=== PATIENT | male | born 1995 | race Caucasian/White ===

== ENCOUNTER 2017-11-09 17:03 | Emergency (ER) | payer OTHER ==
[2017-11-09] MEDS ORDERED: IBUPROFEN 600 MG TAB PO STA (17:29)
[2017-11-09] MEDS ORDERED: ACETAMINOPHEN TAB 500 MG TAB PO STA (17:29)
--- NOTE | 2017-11-09 17:33 | ED ---
General Adult HPI - General Chief complaint: Arrhythmia/Palpitations Stated complaint: abn ekg Time Seen by Provider: 11/09/17 17:20 Source: patient, family, RN notes reviewed Mode of arrival: ambulatory Limitations: no limitations - History of Present Illness Initial comments: This is a 21-year-old male who presents to the emergency department with chief complaint of shortness of breath and increased heart rate. Patient states that this morning he woke up and was feeling warm. He states that he felt short of breath and had a cough. He states the symptoms came on suddenly. He also reports body aches. He states that he has been exposed to a friend who is sick. Denies any recent surgeries or hospitalizations. He does not take any medications for anything. Patient presented to [email or web address] prior to arrival to the emergency department and was told to come here for an elevated heart rate. They did obtain an EKG which revealed sinus tachycardia with no ST segment changes. He had a slightly elevated temperature at 99.1. On presentation to the emergency department, patient was found to have tachycardia and a fever 101.7. Patient denies any abdominal pain, nausea or vomiting, diarrhea or constipation, dysuria or hematuria, dizziness or headache. - Related Data Previous Rx's Medication Instructions Recorded Levofloxacin [Levaquin] 500 mg PO DAILY #7 tab 11/09/17 Allergies Allergy/AdvReac Type Severity Reaction Status Date / Time No Known Allergies Allergy Verified 11/09/17 17:56 Review of Systems ROS Statement: Those systems with pertinent positive or pertinent negative responses have been documented in the HPI. ROS Other: All systems not noted in ROS Statement are negative. Past Medical History Past Medical History: No Reported History History of Any Multi-Drug Resistant Organisms: None Reported Past Surgical History: No Surgical Hx Reported Past Psychological History: No Psychological Hx Reported Smoking Status: Never smoker Past Alcohol Use History: Rare Past Drug Use History: None Reported General Exam - General Exam Comments Initial Comments: General: Awake and alert, well-developed; in no apparent distress. Mother is at bedside. Febrile. HEENT: Head atraumatic, normocephalic. Pupils are equal, round and reactive to light. Extraocular movements intact. Oropharynx moist without erythema or exudate. Neck: Supple. Normal ROM. No tender lymphadenopathy. Cardiovascular: Tachycardia. Normal rhythm. No murmurs, rubs or gallops. Chest symmetrical. Respiratory: Lungs clear to auscultation bilaterally. No wheezes, rales or rhonchi. Normal respiratory effort with no use of accessory muscles. Abdomen: Soft, non-tender, non-distended. No rigidity, rebound or guarding. Normal bowel sounds in all 4 quadrants. Musculoskeletal: Normal ROM, no tenderness bilateral upper and lower extremities. Ambulating normally. Skin: [place], warm and dry without rashes or lesions. Neurological: Alert and oriented x3. CN II-XII grossly intact. Speech is fluent and answers are appropriate. No focal neuro deficits. Psychiatric: Normal mood and affect. No overt signs of depression or anxiety noted. Limitations: no limitations (Initial vital signs: Temperature 101.7, pulse 128, respirations 20, blood pressure 142/75, pulse ox 100% on room air) Course Vital Signs 11/09/17 11/09/17 11/09/17 17:17 17:30 18:44 Temperature 101.7 F H Pulse Rate 128 H 113 H Pulse Rate [ 120 H Bilateral Scenic Designer ] Respiratory 20 18 Rate Blood Pressure 142/75 O2 Sat by Pulse 100 98 Oximetry 11/09/17 19:47 Temperature 100.8 F H Pulse Rate 105 H Pulse Rate [ Bilateral Scenic Designer ] Respiratory 20 Rate Blood Pressure 101/55 O2 Sat by Pulse 97 Oximetry - Reevaluation(s) Reevaluation #1: On reevaluation patient, he complains of body aches and having a hot flash. Chest x-ray revealed no acute abnormalities. Influenza was negative. Pending labs and UA. 11/09/17 19:08 EKG Findings - EKG Comments: EKG Findings:: EKG at 17:38:30 revealed a sinus tachycardia with nonspecific ST and T-wave abnormalities. Ventricular rate 122 bpm, KS interval 176, QRS duration 86, QT/QTC 280/399. No evidence of ST segment elevation or depression. Medical Decision Making - Medical Decision Making This is a 21-year-old male who presented to the emergency department with chief complaint of elevated heart rate. Patient was found to have a fever at 101.7. He was given Motrin and Tylenol. Patient also complained of some shortness of breath and body aches. Influenza, EBV and rapid strep were all negative. Chest x-ray revealed no acute abnormalities. EKG revealed sinus tachycardia with normal rhythm. CMP and UA were within normal limits. Patient did have a slightly elevated white blood cell count with left shift. Denies any chest pain , abdominal pain, nausea or vomiting, diarrhea or constipation, sore throat, runny nose, sinus congestion, dysuria or hematuria. Patient does have a fever of unknown origin. He was given 500 mg of Levaquin while in the emergency department. Urine and blood cultures are pending. Patient's vitals are stable and he is in no acute distress. He'll be discharged home with a prescription for Levaquin. Patient was instructed to discontinue Levaquin if blood cultures are negative. But he is to take the medication until results are in. Patient is to follow-up with his primary care provider in the next couple of days. He is in agreement and voices understanding. All questions were answered. - Lab Data Result diagrams: 11/09/17 19:44 11/09/17 19:44 Lab Results 11/09/17 11/09/17 11/09/17 Range/Units 17:44 19:44 19:44 WBC 11.6 H (4.0-11.0) k/uL RBC 5.51 (4.30-5.90) m/uL Hgb 15.3 (13.0-17.5) gm/dL Hct 45.8 (39.0-53.0) % MCV 83.1 (80.0-100.0) fL MCH 27.8 (25.0-35.0) pg MCHC 33.4 (31.0-37.0) g/dL RDW 13.1 (11.5-15.5) % Plt Count 154 (150-450) k/uL Neutrophils % 89 % Lymphocytes % 5 % Monocytes % 5 % Eosinophils % 0 % Basophils % 0 % Neutrophils # 10.4 H (1.3-7.7) k/uL Lymphocytes # 0.6 L (1.0-4.8) k/uL Monocytes # 0.5 (0-1.0) k/uL Eosinophils # 0.0 (0-0.7) k/uL Basophils # 0.0 (0-0.2) k/uL Sodium 141 (137-145) mmol/L Potassium 4.2 (3.5-5.1) mmol/L Chloride 101 (98-107) mmol/L Carbon Dioxide 27 (22-30) mmol/L Anion Gap 13 mmol/L BUN 13 (9-20) mg/dL Creatinine 0.80 (0.66-1.25) mg/dL Est GFR (MDRD) Af Amer >60 (>60 ml/min/1.73 sqM) Est GFR (MDRD) Non-Af >60 (>60 ml/min/1.73 sqM) Glucose 97 (74-99) mg/dL Plasma Lactic Acid Josiah (0.7-2.0) mmol/L Calcium 10.5 H (8.4-10.2) mg/dL Total Bilirubin 1.2 (0.2-1.3) mg/dL AST 33 (17-59) U/L ALT 43 (21-72) U/L Alkaline Phosphatase 71 (38-126) U/L Total Protein 8.4 H (6.3-8.2) g/dL Albumin 5.0 (3.5-5.0) g/dL Urine Color Urine Appearance (Clear) Urine pH (5.0-8.0) Ur Specific [place] (1.001-1.035) Urine Protein (Negative) Urine Glucose (UA) (Negative) Urine Ketones (Negative) Urine Blood (Negative) Urine Nitrite (Negative) Urine Bilirubin (Negative) Urine Urobilinogen (<2.0) mg/dL Ur Leukocyte Esterase (Negative) Heterophile Antibody (Negative) Influenza Type A RNA Not Detected (Not Detectd) Influenza Type B (PCR) Not Detected (Not Detectd) Group A Strep Rapid (Negative) 11/09/17 11/09/17 11/09/17 Range/Units 19:44 19:44 19:44 WBC (4.0-11.0) k/uL RBC (4.30-5.90) m/uL Hgb (13.0-17.5) gm/dL Hct (39.0-53.0) % MCV (80.0-100.0) fL MCH (25.0-35.0) pg MCHC (31.0-37.0) g/dL RDW (11.5-15.5) % Plt Count (150-450) k/uL Neutrophils % % Lymphocytes % % Monocytes % % Eosinophils % % Basophils % % Neutrophils # (1.3-7.7) k/uL Lymphocytes # (1.0-4.8) k/uL Monocytes # (0-1.0) k/uL Eosinophils # (0-0.7) k/uL Basophils # (0-0.2) k/uL Sodium (137-145) mmol/L Potassium (3.5-5.1) mmol/L Chloride (98-107) mmol/L Carbon Dioxide (22-30) mmol/L Anion Gap mmol/L BUN (9-20) mg/dL Creatinine (0.66-1.25) mg/dL Est GFR (MDRD) Af Amer (>60 ml/min/1.73 sqM) Est GFR (MDRD) Non-Af (>60 ml/min/1.73 sqM) Glucose (74-99) mg/dL Plasma Lactic Acid Josiah 1.2 (0.7-2.0) mmol/L Calcium (8.4-10.2) mg/dL Total Bilirubin (0.2-1.3) mg/dL AST (17-59) U/L ALT (21-72) U/L Alkaline Phosphatase (38-126) U/L Total Protein (6.3-8.2) g/dL Albumin (3.5-5.0) g/dL Urine Color Urine Appearance (Clear) Urine pH (5.0-8.0) Ur Specific [place] (1.001-1.035) Urine Protein (Negative) Urine Glucose (UA) (Negative) Urine Ketones (Negative) Urine Blood (Negative) Urine Nitrite (Negative) Urine Bilirubin (Negative) Urine Urobilinogen (<2.0) mg/dL Ur Leukocyte Esterase (Negative) Heterophile Antibody Negative (Negative) Influenza Type A RNA (Not Detectd) Influenza Type B (PCR) (Not Detectd) Group A Strep Rapid Negative (Negative) 11/09/17 Range/Units 19:52 WBC (4.0-11.0) k/uL RBC (4.30-5.90) m/uL Hgb (13.0-17.5) gm/dL Hct (39.0-53.0) % MCV (80.0-100.0) fL MCH (25.0-35.0) pg MCHC (31.0-37.0) g/dL RDW (11.5-15.5) % Plt Count (150-450) k/uL Neutrophils % % Lymphocytes % % Monocytes % % Eosinophils % % Basophils % % Neutrophils # (1.3-7.7) k/uL Lymphocytes # (1.0-4.8) k/uL Monocytes # (0-1.0) k/uL Eosinophils # (0-0.7) k/uL Basophils # (0-0.2) k/uL Sodium (137-145) mmol/L Potassium (3.5-5.1) mmol/L Chloride (98-107) mmol/L Carbon Dioxide (22-30) mmol/L Anion Gap mmol/L BUN (9-20) mg/dL Creatinine (0.66-1.25) mg/dL Est GFR (MDRD) Af Amer (>60 ml/min/1.73 sqM) Est GFR (MDRD) Non-Af (>60 ml/min/1.73 sqM) Glucose (74-99) mg/dL Plasma Lactic Acid Josiah (0.7-2.0) mmol/L Calcium (8.4-10.2) mg/dL Total Bilirubin (0.2-1.3) mg/dL AST (17-59) U/L ALT (21-72) U/L Alkaline Phosphatase (38-126) U/L Total Protein (6.3-8.2) g/dL Albumin (3.5-5.0) g/dL Urine Color Light Yellow Urine Appearance Clear (Clear) Urine pH 6.0 (5.0-8.0) Ur Specific [place] 1.010 (1.001-1.035) Urine Protein Negative (Negative) Urine Glucose (UA) Negative (Negative) Urine Ketones Negative (Negative) Urine Blood Negative (Negative) Urine Nitrite Negative (Negative) Urine Bilirubin Negative (Negative) Urine Urobilinogen <2.0 (<2.0) mg/dL Ur Leukocyte Esterase Negative (Negative) Heterophile Antibody (Negative) Influenza Type A RNA (Not Detectd) Influenza Type B (PCR) (Not Detectd) Group A Strep Rapid (Negative) - Radiology Data Radiology results: report reviewed Chest x-ray findings: Heart and mediastinum are normal. Lungs are clear. Diaphragm is normal. Bony thorax appears normal. Impression: Normal chest. Disposition Clinical Impression: Fever of unknown origin Disposition: HOME SELF-CARE Condition: Good Instructions: Fever in Adults (ED) Additional Instructions: Please take medications as prescribed. May discontinue antibiotics if blood and urine cultures are negative. Please follow up with primary care provider within 1-2 days. Return to emergency department if symptoms should worsen or any concerns arise. Prescriptions: Levofloxacin [Levaquin] 500 mg PO DAILY #7 tab Referrals: None,Stated [Primary Care Provider] - 1-2 days Time of Disposition: 21:13
[2017-11-09] MEDS ORDERED: SODIUM CHLORIDE 0.9% 2,000 ML IV STA (18:26)
--- NOTE | 2017-11-09 18:58 | XR ---
EXAMINATION TYPE: XR chest 2V DATE OF EXAM: 11/09/2017 COMPARISON: NONE HISTORY: Short of breath TECHNIQUE: Frontal and lateral views of the chest are obtained. FINDINGS: Heart and mediastinum are normal. Lungs are clear. Diaphragm is normal. Bony thorax appear s normal. IMPRESSION: Normal chest
[2017-11-09 19:49] VITALS: RESP 20
[2017-11-09 20:14] LABS: ALT 43 U/L (21-72); AST 33 U/L (17-59); Alkaline Phosphatase 71 U/L (38-126); Anion Gap 13 mmol/L; Blood Urea Nitrogen 13 mg/dL (9-20); Calcium 10.5 mg/dL (8.4-10.2); Carbon Dioxide 27 mmol/L (22-30); Chloride 101 mmol/L (98-107); Glucose 97 mg/dL (74-99); Potassium 4.2 mmol/L (3.5-5.1); Sodium 141 mmol/L (137-145); Total Bilirubin 1.2 mg/dL (0.2-1.3); Total Protein 8.4 g/dL (6.3-8.2)
[2017-11-09 20:17] LABS: Basophils % (A) 0 %; Eosinophils % (A) 0 %; HCT 45.8 % (39.0-53.0); HGB 15.3 gm/dL (13.0-17.5); Lymphocytes # (A) 0.6 k/uL (1.0-4.8); Lymphocytes % (A) 5 %; MCH 27.8 pg (25.0-35.0); MCHC 33.4 g/dL (31.0-37.0); MCV 83.1 fL (80.0-100.0); Monocytes # (A) 0.5 k/uL (0-1.0); Monocytes % (A) 5 %; Neutrophils # (A) 10.4 k/uL (1.3-7.7); Neutrophils % (A) 89 %; Platelet Count 154 k/uL (150-450); RBC 5.51 m/uL (4.30-5.90); RDW 13.1 % (11.5-15.5); WBC 11.6 k/uL (4.0-11.0)
[2017-11-09 20:39] LABS: Appearance,Urine Clear (Clear); Bilirubin,Urine Negative (Negative); Blood,Urine Negative (Negative); Color,Urine Light Yellow; Glucose,Urine (UA) Negative (Negative); Ketones,Urine Negative (Negative); Leukocyte Esterase,Urine Negative (Negative); Protein,Urine Negative (Negative); Urobilinogen,Urine <2.0 mg/dL (<2.0)
[2017-11-09] MEDS ORDERED: LEVOFLOXACIN 500 MG TAB PO STA (21:08)
[2017-11-09 21:37] VITALS: BP 130/70; PULSE 106; TEMP 98.2
== END 2017-11-09 21:30 | disposition home or self-care (01) ==
LOC: EC 17:03
DX: R50.9 Fever, unspecified (principal); R00.0 Tachycardia, unspecified; D72.829 Elevated white blood cell count, unspecified; R06.02 Shortness of breath; R52 Pain, unspecified
CPT/HCPCS: 36415; 71046; 80053; 81003; 83605; 85025; 86308; 87040; 87081; 87086; 87430; 87502; 93005; 99285

== ENCOUNTER 2020-06-07 10:03 | Emergency (ER) | payer OTHER ==
[2020-06-07] MEDS ORDERED: DEXAMETHASONE SOD PHOSPHATE 10 MG/ML 1 ML VIAL IM STA (10:23)
--- NOTE | 2020-06-07 11:08 | ED ---
General Adult HPI - General Chief complaint: ENT Stated complaint: THROAT SWELLING Time Seen by Provider: 06/07/20 10:11 Source: patient, RN notes reviewed, old records reviewed Mode of arrival: ambulatory - History of Present Illness Initial comments: 24-year-old male, otherwise healthy presenting with 2 weeks of sore throat, mild cough. He denies difficulty breathing. He denies rhinorrhea. He has had bilateral sore throat and swollen lymph nodes which are worsened over the past several days. He denies abdominal pain nausea vomiting or diarrhea. No fever. He has had some chills. - Related Data Previous Rx's Medication Instructions Recorded Levofloxacin [Levaquin] 500 mg PO DAILY #7 tab 11/09/17 Allergies Allergy/AdvReac Type Severity Reaction Status Date / Time No Known Allergies Allergy Verified 06/07/20 10:05 Review of Systems ROS Statement: Those systems with pertinent positive or pertinent negative responses have been documented in the HPI. ROS Other: All systems not noted in ROS Statement are negative. Past Medical History Past Medical History: No Reported History History of Any Multi-Drug Resistant Organisms: None Reported Past Surgical History: No Surgical Hx Reported Past Psychological History: No Psychological Hx Reported Smoking Status: Never smoker Past Alcohol Use History: Rare Past Drug Use History: None Reported General Exam General appearance: alert, in no apparent distress Head exam: Present: atraumatic, normocephalic Eye exam: Present: normal appearance, PERRL ENT exam: Present: other (Significant tonsillar hypertrophy and exudate) Neck exam: Present: lymphadenopathy Respiratory exam: Present: normal lung sounds bilaterally. Absent: respiratory distress, wheezes, stridor Cardiovascular Exam: Present: regular rate, normal rhythm GI/Abdominal exam: Present: soft. Absent: distended, tenderness, guarding, rebound Extremities exam: Present: normal inspection, normal capillary refill. Absent: pedal edema, calf tenderness Neurological exam: Present: alert, oriented X3, CN II-XII intact. Absent: motor sensory deficit Psychiatric exam: Present: normal affect, normal mood Skin exam: Present: warm, dry, intact. Absent: cyanosis, diaphoretic Course Vital Signs 06/07/20 10:06 Temperature 98.1 F Pulse Rate 94 Respiratory 16 Rate Blood Pressure 176/68 O2 Sat by Pulse 100 Oximetry Medical Decision Making - Medical Decision Making 24-year-old male with tonsillar hypertrophy, exudate, ongoing for 2 weeks. Exam is concerning for mono for strep pharyngitis. Heterophile is obtained which is positive, rapid strep test is negative. Patient has no abdominal pain, no organomegaly on exam. He is given precautions for mononucleosis. He is given Decadron in the emergency department. There is no airway compromise, no stridor. - Lab Data Lab Results 06/07/20 06/07/20 Range/Units 10:41 10:41 Heterophile Antibody Positive (Negative) Group A Strep Rapid Negative (Negative) Disposition Clinical Impression: Sore throat, Mononucleosis Disposition: HOME SELF-CARE Condition: Good Instructions (If sedation given, give patient instructions): Mononucleosis (ED) Is patient prescribed a controlled substance at d/c from ED?: No Referrals: Naomi Carmen MD [Primary Care Provider] - 1-2 days Time of Disposition: 11:08
[2020-06-07 11:09] VITALS: BP 143/87; PULSE 95; RESP 18; TEMP 98.6
== END 2020-06-07 11:18 | disposition home or self-care (01) ==
LOC: EC 10:03
DX: B27.90 Infectious mononucleosis, unspecified without complication (principal)
CPT/HCPCS: 36415; 86308; 87081; 87430; 99284; 96372; J1100

== ENCOUNTER 2020-06-09 12:56 | Observation (INO) | payer OTHER ==
[2020-06-09] MEDS ORDERED: methylPREDNISolone SOD SUCCI 125 MG/2 ML VIAL IV STA (13:09)
--- NOTE | 2020-06-09 13:16 | ED ---
General Adult HPI - General Chief complaint: ENT Stated complaint: throat closing Time Seen by Provider: 06/09/20 13:00 Source: patient, RN notes reviewed, old records reviewed Mode of arrival: wheelchair Limitations: no limitations - History of Present Illness Initial comments: This is a 24-year-old male who presents emergency Department complaining of a sore throat he states his been ongoing for approximately 2 weeks. Patient states she's been to the emergency department twice and to see his primary medical care doctor multiple times. Patient states she's been on steroids multiple antibiotics but the swelling continues to get worse to the point where his voice is very hoarse and he can only swallow of very little bit of water because of the swelling and pain. Patient denies any recent fever patient denies any cough or shortness of breath. Patient states the breathing seems to be okay but he is having swallowing problems only at this time - Related Data Home Medications Medication Instructions Recorded Confirmed Cephalexin [Keflex] 500 mg PO QID 06/07/20 06/09/20 predniSONE See Taper PO DIRECTED 06/07/20 06/09/20 Amoxic-Pot Clav 875-125Mg 1 tab PO Q12HR 06/09/20 06/09/20 [Augmentin 875-125] Ibuprofen [Motrin Ib] 200 mg PO Q8H PRN 06/09/20 06/09/20 Allergies Allergy/AdvReac Type Severity Reaction Status Date / Time No Known Allergies Allergy Verified 06/09/20 13:59 Review of Systems ROS Statement: Those systems with pertinent positive or pertinent negative responses have been documented in the HPI. ROS Other: All systems not noted in ROS Statement are negative. Past Medical History Past Medical History: No Reported History History of Any Multi-Drug Resistant Organisms: None Reported Past Surgical History: No Surgical Hx Reported Past Psychological History: No Psychological Hx Reported Smoking Status: Vaper Past Alcohol Use History: Rare Past Drug Use History: None Reported General Exam - General Exam Comments Initial Comments: GENERAL: Patient is well-developed and well-nourished. Patient is nontoxic and well- hydrated and is in no acute distress. ENT: Neck is soft and supple. Patient has significant lymphadenopathy anteriorly. Patient's tonsillar hypertrophy is significant to the point where the tonsils are touching. There is quite a bit of exudate on the tonsils as well. Neck has full range of motion without eliciting any pain. EYES: The sclera were anicteric and conjunctiva were pink and moist. Extraocular movements were intact and pupils were equal round and reactive to light. Eye lids were unremarkable. PULMONARY: Unlabored respirations. Good breath sounds bilaterally. No audible rales rhonchi or wheezing was noted. CARDIOVASCULAR: There is a regular rate and rhythm without any murmurs gallops or rubs. ABDOMEN: Soft and nontender with normal bowel sounds. SKIN: Skin is clear with no lesions or rashes and otherwise unremarkable. NEUROLOGIC: Patient is alert and oriented x3. Cranial nerves II through XII are grossly intact. Motor and sensory are also intact. Normal speech, volume and content. Symmetrical smile. MUSCULOSKELETAL: Normal extremities with adequate strength and full range of motion. No lower extremity swelling or edema. No calf tenderness. LYMPHATICS: No significant lymphadenopathy is noted PSYCHIATRIC: Normal psychiatric evaluation. Limitations: no limitations Course Vital Signs 06/09/20 13:04 Temperature 99.1 F Pulse Rate 111 H Respiratory 20 Rate Blood Pressure 140/95 O2 Sat by Pulse 98 Oximetry Medical Decision Making - Medical Decision Making I spoke with Dr. Prater he agreed to admit the patient admitted the patient wrote admitting orders. I continued steroids on the floor. - Lab Data Result diagrams: 06/09/20 13:12 06/09/20 13:12 Lab Results 06/09/20 06/09/20 Range/Units 13:12 13:12 WBC 13.7 H (3.8-10.6) k/uL RBC 5.26 (4.30-5.90) m/uL Hgb 14.5 (13.0-17.5) gm/dL Hct 44.4 (39.0-53.0) % MCV 84.3 (80.0-100.0) fL MCH 27.6 (25.0-35.0) pg MCHC 32.7 (31.0-37.0) g/dL RDW 13.4 (11.5-15.5) % Plt Count 234 (150-450) k/uL Neutrophils % (Manual) 42 % Band Neuts % (Manual) 1 % Lymphocytes % (Manual) 51 % Monocytes % (Manual) 8 % Neutrophils # (Manual) 5.80 (1.3-7.7) k/uL Lymphocytes # (Manual) 6.99 H (1.0-4.8) k/uL Monocytes # (Manual) 1.10 H (0-1.0) k/uL Nucleated RBCs 0 (0-0) /100 WBC Differential Comment Manual Slide Review Performed Reactive Lymphocytes Present RBC Morphology Normal Sodium 137 (137-145) mmol/L Potassium 4.1 (3.5-5.1) mmol/L Chloride 102 (98-107) mmol/L Carbon Dioxide 26 (22-30) mmol/L Anion Gap 9 mmol/L BUN 15 (9-20) mg/dL Creatinine 0.89 (0.66-1.25) mg/dL Est GFR (CKD-EPI)AfAm >90 (>60 ml/min/1.73 sqM) Est GFR (CKD-EPI)NonAf >90 (>60 ml/min/1.73 sqM) Glucose 102 H (74-99) mg/dL Calcium 9.5 (8.4-10.2) mg/dL Total Bilirubin 0.6 (0.2-1.3) mg/dL AST 112 H (17-59) U/L ALT 319 H (4-49) U/L Alkaline Phosphatase 133 H (38-126) U/L Total Protein 8.8 H (6.3-8.2) g/dL Albumin 4.7 (3.5-5.0) g/dL Disposition Clinical Impression: Acute pharyngitis due to infectious mononucleosis Disposition[facility] Referrals: Naomi Carmen MD [Primary Care Provider] - 1-2 days Time of Disposition: 14:10
[2020-06-09 13:22] LABS: HCT 44.4 % (39.0-53.0); HGB 14.5 gm/dL (13.0-17.5); MCH 27.6 pg (25.0-35.0); MCHC 32.7 g/dL (31.0-37.0); MCV 84.3 fL (80.0-100.0); Mean Platelet Volume 6.3; Platelet Count 234 k/uL (150-450); RBC 5.26 m/uL (4.30-5.90); RDW 13.4 % (11.5-15.5); WBC 13.7 k/uL (3.8-10.6)
[2020-06-09 13:31] LABS: ALT 319 U/L (4-49); AST 112 U/L (17-59); African American GFR (CKD) >90 (>60 ml/min/1.73 sqM); Albumin 4.7 g/dL (3.5-5.0); Alkaline Phosphatase 133 U/L (38-126); Anion Gap 9 mmol/L; Blood Urea Nitrogen 15 mg/dL (9-20); Calcium 9.5 mg/dL (8.4-10.2); Carbon Dioxide 26 mmol/L (22-30); Chloride 102 mmol/L (98-107); Glucose 102 mg/dL (74-99); Non-African American GFR(CKD) >90 (>60 ml/min/1.73 sqM); Potassium 4.1 mmol/L (3.5-5.1); Sodium 137 mmol/L (137-145); Total Bilirubin 0.6 mg/dL (0.2-1.3); Total Protein 8.8 g/dL (6.3-8.2)
[2020-06-09 13:39] LABS: Band Neutrophils % 1 %; Lymphocytes # (M) 6.99 k/uL (1.0-4.8); Neutrophils % (M) 42 %; Nucleated Red Blood Cells 0 /100 WBC (0-0); Total Cells Counted 200
[2020-06-09 13:40] LABS: Reactive Lymphocytes Present
--- NOTE | 2020-06-09 13:54 | XR ---
EXAMINATION TYPE: XR chest 2V DATE OF EXAM: 06/09/2020 COMPARISON: 11/09/2017 HISTORY: Chest pain TECHNIQUE: Frontal and lateral views of the chest are obtained. FINDINGS: There is no focal air space opacity. No evidence for pneumothorax. No pleural effusion. The cardiac silhouette size is within normal limits. The osseous structures are grossly intact. IMPRESSION: 1. No acute cardiopulmonary process.
[2020-06-09] MEDS ORDERED: SODIUM CHLORIDE 0.9% 1,000 ML IV ONE (14:10)
[2020-06-09] MEDS ORDERED: DEXAMETHASONE SOD PHOSPHATE 10 MG/ML 1 ML VIAL IV STA (14:14)
[2020-06-09] MEDS: DEXAMETHASONE SOD PHOSPHATE 4 MG/ML 1 ML VIAL IV SCH ×2 (18:20→23:43)
[2020-06-09] MEDS ORDERED: ACETAMINOPHEN TAB 500 MG TAB PO PRN (19:06)
--- NOTE | 2020-06-09 21:54 | P.HPIM ---
History of Present Illness H&P Date: 06/09/20 Chief Complaint: Throat pain Patient is a 24-year-old male without significant past medical history came to ER with complaints of sore throat and difficulty swallowing which has been getting worse over the past 2 weeks. Patient was initially seen 05/31/2020 in the ER with complaints of fever headache fatigue and headache and body aches. Patient was treated for acute viral syndrome and also given antibiotic course. Patient was seen by primary care physician and had multiple antibiotic courses with Augmentin and Keflex. Patient today having worsening symptoms of diffi culty breathing which made him to come to ER. Chest x-ray showed no acute cardiopulmonary process. Patient had coronavirus PCR and influenza and strep throat -ve on 05/31/2020 Laboratory data showed WBC 13.7 AST 112, ALT 319 and alk phos 133 Absolute lymphocyte count is 6.99 Review of Systems Constitutional: Patient denies any fever or chills . No generalized weakness or weight loss. Abdomen: Patient denied nausea vomiting and diarrhea and abdominal pain. Cardiovascular: Patient denies any chest pain or short of breath no palpitations. Respiratory: patient denied any cough or sputum production. No shortness of breath. Throat pain and diff swallowing. Neurologic: Patient denied any numbness or tingling headache. Musculoskeletal: Patient denies any complaints of joint swelling or deformity. Skin: Negative Psychiatric: Negative Endocrine: No heat or cold intolerance. No recent weight gain. Genitourinary: No dysuria or hematuria. All other 14 point ROS negative except the above Past Medical History Past Medical History: No Reported History History of Any Multi-Drug Resistant Organisms: None Reported Past Surgical History: No Surgical Hx Reported Past Anesthesia/Blood Transfusion Reactions: No Reported Reaction Past Psychological History: No Psychological Hx Reported Smoking Status: Vaper Past Alcohol Use History: Rare Past Drug Use History: None Reported Additional Drug Use History / Comment(s): rarely vapes, drinks occasionally Medications and Allergies Home Medications Medication Instructions Recorded Confirmed Type Cephalexin [Keflex] 500 mg PO QID 06/07/20 06/09/20 History predniSONE See Taper PO DIRECTED 06/07/20 06/09/20 History Amoxic-Pot Clav 875-125Mg 1 tab PO Q12HR 06/09/20 06/09/20 History [Augmentin 875-125] Ibuprofen [Motrin Ib] 200 mg PO Q8H PRN 06/09/20 06/09/20 History Allergies Allergy/AdvReac Type Severity Reaction Status Date / Time No Known Allergies Allergy Verified 06/09/20 13:59 Physical Exam Vitals: Vital Signs Temp Pulse Pulse Resp BP BP Pulse Ox 06/09/20 17:22 99.8 F H 107 H 19 151/79 97 06/09/20 17:00 98.9 F 89 20 147/98 99 06/09/20 16:00 101 H 20 157/83 98 06/09/20 14:08 65 16 147/87 100 06/09/20 13:04 99.1 F 111 H 20 140/95 98 Intake and Output 06/09/20 06/09/20 06/09/20 06:59 14:59 22:59 Other: # Voids 1 Weight 99.79 kg 99.79 kg PHYSICAL EXAMINATION: Patient is lying in the bed comfortably, no acute distress, awake alert and oriented.. HEENT: Normocephalic. Neck is supple. Pupils reactive. Nostrils clear. Oral cavity is moist.Tonsillar enlargement with some exudate. Pharyngeal erythema. Ears reveal no drainage. Neck reveals no JVD, carotid bruits, or thyromegaly. CHEST EXAMINATION: Trachea is central. Symmetrical expansion. Lung briceno clear to auscultation and percussion. CARDIAC: Normal S1, S2 with no gallops. No murmurs ABDOMEN: Soft. Bowel sounds normal. No organomegaly. No abdominal bruits. Extremities: reveal no edema. No clubbing or cyanosis Neurologically awake, alert, oriented x3 with well-coordinated movements. No focal deficits noted Skin: No rash or skin lesions. Psychiatric: Coperative. Nonsuicidal Musculoskeletal: No joint swelling or deformity. Normal range of motion. Results CBC & Chem 7: 06/09/20 13:12 06/09/20 13:12 Labs: Abnormal Lab Results - Last 24 Hours (Table) 06/09/20 06/09/20 Range/Units 13:12 13:12 WBC 13.7 H (3.8-10.6) k/uL Lymphocytes # (Manual) 6.99 H (1.0-4.8) k/uL Monocytes # (Manual) 1.10 H (0-1.0) k/uL Glucose 102 H (74-99) mg/dL AST 112 H (17-59) U/L ALT 319 H (4-49) U/L Alkaline Phosphatase 133 H (38-126) U/L Total Protein 8.8 H (6.3-8.2) g/dL Thrombosis Risk Factor Assmnt - DVT/VTE Prophylaxis DVT/VTE Prophylaxis: Mechanical Prophylaxis ordered - Choose All That Apply Any of the Below Risk Factors Present?: No Assessment and Plan Assessment: Acute pharyngitis secondary to infectious mononucleosis Elevated liver enzymes secondary to IM Possible acute tonsillitis DVT prophylaxis with SCDs Plan: Patient will be continued on symptomatic management with Tylenol and was started on dexamethasone. Empiric antibiotics. Follow-up CBC and BMP and LFTs tomorrow. ENT was consulted. Further recommendations based on the clinical course. Time with Patient: Greater than 30
[2020-06-10] MEDS: DEXAMETHASONE SOD PHOSPHATE 4 MG/ML 1 ML VIAL IV SCH ×2 (05:51→12:47)
[2020-06-10 07:35] LABS: Potassium 4.8 mmol/L (3.5-5.1)
[2020-06-10 07:36] LABS: ALT 253 U/L (4-49); AST 67 U/L (17-59); African American GFR (CKD) >90 (>60 ml/min/1.73 sqM); Albumin 4.2 g/dL (3.5-5.0); Alkaline Phosphatase 103 U/L (38-126); Anion Gap 8 mmol/L; Blood Urea Nitrogen 12 mg/dL (9-20); Calcium 9.6 mg/dL (8.4-10.2); Carbon Dioxide 29 mmol/L (22-30); Chloride 102 mmol/L (98-107); Glucose 133 mg/dL (74-99); Non-African American GFR(CKD) >90 (>60 ml/min/1.73 sqM); Sodium 139 mmol/L (137-145); Total Bilirubin 0.6 mg/dL (0.2-1.3)
[2020-06-10 08:36] VITALS: BP 159/78; PULSE 95; RESP 16; TEMP 98.3
[2020-06-10 08:47] LABS: Basophils # (A) 0.1 k/uL (0-0.2); Basophils % (A) 1 %; Eosinophils % (A) 0 %; HCT 42.7 % (39.0-53.0); HGB 13.6 gm/dL (13.0-17.5); Lymphocytes # (A) 4.1 k/uL (1.0-4.8); Lymphocytes % (A) 31 %; MCH 27.3 pg (25.0-35.0); MCHC 31.9 g/dL (31.0-37.0); MCV 85.8 fL (80.0-100.0); Mean Platelet Volume 7.6; Monocytes # (A) 0.8 k/uL (0-1.0); Monocytes % (A) 6 %; Neutrophils # (A) 7.7 k/uL (1.3-7.7); Neutrophils % (A) 58 %; Platelet Count 244 k/uL (150-450); RBC 4.97 m/uL (4.30-5.90); RDW 13.5 % (11.5-15.5); WBC 13.2 k/uL (3.8-10.6)
[2020-06-10] MEDS ORDERED: SODIUM CHLORIDE 0.9% 1,000 ML IV SCH (12:30)
--- NOTE | 2020-06-10 17:16 | CONS ---
CONSULTATION REASON FOR CONSULTATION: Mononucleosis. PLAN: I have advised the patient that he does not need to see a specialist after discharge nor does he need to have his tonsils taken out in the future. He may simply follow up with his family physician, Dr. Carmen, once he is discharged from the hospital. The decision to return to work will be between the patient's family physician and the patient. MMGERMAN / ERNESTINEN: [id number] / MTDD
--- NOTE | 2020-06-10 18:01 | CONS ---
CONSULTATION REASON FOR CONSULTATION: Enlarged tonsils, mononucleosis. HISTORY OF THE PRESENT ILLNESS: The patient is a very pleasant 24-year-old male who was admitted to [facility] via the emergency room department because of complaints of dysphagia. At the time that the patient was seen in the emergency room, the patient stated that he had experienced a slight sore throat, significant swelling of his tonsils and difficulty swallowing for a couple of weeks. He was seen by his family physician who placed him on several courses of oral antibiotics and oral steroids with no significant improvement. Because of the severe dysphagia, the patient was admitted to the hospital for definitive treatment. He was placed on IV antibiotics, IV steroids, and an ENT consult was obtained. At the time that I visited the patient in his room, the patient was in no acute distress. He stated that his throat discomfort was mild and he has not requested any pain medication. He is able to swallow liquids and handle his own secretions. At the present time he is afebrile. His CBC had a significant leukocytosis and a positive heterophile test for mononucleosis. The patient does not have a history of recurrent tonsillitis or strep throat.He thinks he may have acquired the infection while sharing the same drinking glass with other people at a gathering. PAST MEDICAL HISTORY: The patient has no known allergies to medications. He is not usually on any prescription medications.He is a non-smoker. REVIEW OF SYSTEMS: Completely noncontributory. PHYSICAL EXAMINATION: The patient is a very pleasant 24-year-old male who is alert, cooperative and is in no acute distress at this time. HEENT examination: Patient is normocephalic. Tympanic membranes are normal. Middle ear spaces are free of any fluid or infection. Pupils are equal, round, and reactive to light and accommodation. Conjunctiva are clear. Extraocular movements are within normal limits. Intranasal examination reveals mild septal deviation with compensatory hypertrophy of the inferior turbinates and a slight amount of clear mucus on the mucous membranes and draining down the posterior pharynx. Examination of the oropharynx reveals that the patient has classic exudative "kissing" 4+ tonsillar hypertrophy that is commonly seen in the typical patient with mononucleosis. In addition, palpation of neck reveals significant bilateral enlargement of especially the anterior cervical lymph nodes. These lymph nodes are nontender, mobile and well- circumscribed and may be matted together. Cranial nerves 2 through 12 and remainder of the head and neck exam are within normal limits. CHEST/CARDIOVASCULAR: Both lung briceno are clear to percussion and auscultation. The patient is in regular sinus rhythm. S1 and S2 are present without evidence of any murmurs. The remainder of physical exam is unremarkable. IMPRESSION: 1. Infectious mononucleosis, viral in origin(EBV) 2. Deviated septum. 3. Hypertrophy of the inferior turbinates. 4. Bilateral neck lymphadenopathy. 5. Bilateral exudative tonsillitis 6.dysphagia 7. mononucleosis PLAN: Discussed with the patient's family the fact that antibiotics generally have no affect on the course of the disease mononucleosis. I explained to the patient's family that this disease is caused by one of the EBV, Eugene-Sosa viruses, and that treatment is generally supportive and symptomatic. The patient has stated that he would like to go home and I advised him that from an ENT standpoint that this would be satisfactory. I also advised that normal course of this disease can be anywhere from 2-6 weeks. I also recommended to the patient that if he feels that he is going to be off work for any significant amount of time, he should get a note to take to his employer so that he is not penalized. He is advised to drink plenty of fluids and avoid any type of heavy exercise and also avoid any situations in which he would exchange oral secretions, such as kissing, others using glasses that he has used, etc. If he runs a temperature he has been advised to use either ibuprofen or aspirin. He had previously developed a rash while he was on Augmentin and it is very common that patients who have mononucleosis who are placed on either ampicillin or amoxicillin will subsequently develop a rash. Again, I emphasized to the patient's family that antibiotics have no role in the treatment of this disease and that is usually self-limiting. I will give him an equivalent of a Decadron Dos-graciela to use for 10 days(dexamethasone 0.75 tablets) and a printed schedule on how to use the medication. I have advised the patient and his mother that sometimes this helps with the edema of the tonsils and thereby may improve his ability to swallow. However, the addition of steroids will not affect the actual course of the disease and it will eventually run its course. I want to take this opportunity to thank you for allowing me to participate in the care of your patient. If I could be of any further assistance, please feel free to call my office. The patient has been advised to follow up with his family physician, Dr. Carmen. NICOLAS / CRISTEL: [id number] / ELIZABETH
--- NOTE | 2020-06-16 14:10 | P.DS ---
Providers Date of admission: 06/09/20 14:10 Expected date of discharge: 06/10/20 Attending physician: Chang Prater Consults: 06/09/20 14:10 Consult Physician Urgent Consulting Provider: Jakob Walton Consult Reason/Comments: Difficulty swallowing, mononucleosis Do you want consulting provider notified?: Yes Primary care physician: Nella Salgado Hospital Course: Discharge diagnosis Acute pharyngitis secondary to infectious mononucleosis Elevated liver enzymes secondary to IM and lymphocytosis Possible acute tonsillitis DVT prophylaxis with SCDs Hospital course Patient is a 24-year-old male without significant past medical history came to ER with complaints of sore throat and difficulty swallowing which has been getting worse over the past 2 weeks. Patient was initially seen 05/31/2020 in the ER with complaints of fever headache fatigue and headache and body aches. Patient was treated for acute viral syndrome and also given antibiotic course. Patient was seen by primary care physician and had multiple antibiotic courses with Augmentin and Keflex. Patient today having worsening symptoms of difficulty breathing which made him to come to ER. Chest x-ray showed no acute cardiopulmonary process. Patient had coronavirus PCR and influenza and strep throat -ve on 05/31/2020 Laboratory data showed WBC 13.7 AST 112, ALT 319 and alk phos 133 Absolute lymphocyte count is 6.99 06/10/2020 Patient is currently lying in the bed comfortably. Speech is better and is able to tolerate liquids and semisolids. Tonsillar swelling is much improved. Patient is being continued on diet control. Patient was seen by ENT and cleared for discharge with dexamethasone course as an outpatient. Recommended to follow-up as an outpatient with ENT. Patient otherwise wishes to be discharged home. Patient has been afebrile.Denies any complaints of difficulty in breath PHYSICAL EXAMINATION: Patient is lying in the bed comfortably, no acute distress, awake alert and oriented.. HEENT: Normocephalic. Neck is supple. Pupils reactive. Nostrils clear. Oral cavity is moist.Tonsillar enlargement with some exudate. NO Pharyngeal erythema. Ears reveal no drainage. Neck reveals no JVD, carotid bruits, or thyromegaly. CHEST EXAMINATION: Trachea is central. Symmetrical expansion. Lung briceno clear to auscultation and percussion. CARDIAC: Normal S1, S2 with no gallops. No murmurs ABDOMEN: Soft. Bowel sounds normal. No organomegaly. No abdominal bruits. Extremities: reveal no edema. No clubbing or cyanosis Neurologically awake, alert, oriented x3 with well-coordinated movements. No focal deficits noted Skin: No rash or skin lesions. Psychiatric: Coperative. Nonsuicidal Musculoskeletal: No joint swelling or deformity. Normal range of motion. Discharge vitals reviewed. Patient Condition at Discharge: Stable Plan - Discharge Summary Discharge Rx Participant: Yes New Discharge Prescriptions: New Dexamethasone [Decadron] 0.75 mg PO DIRECTED #24 tablet Discontinued predniSONE See Taper PO DIRECTED Cephalexin [Keflex] 500 mg PO QID Amoxic-Pot Clav 875-125Mg [Augmentin 875-125] 1 tab PO Q12HR No Action Clindamycin HCl 300 mg PO Q8HR #21 cap Famotidine [Pepcid] 20 mg PO BID #30 tablet predniSONE 10 mg PO DAILY #30 tab Discharge Medication List Dexamethasone [Decadron] 0.75 mg PO DIRECTED #24 tablet 06/10/20 [Rx] Clindamycin HCl 300 mg PO Q8HR #21 cap 06/12/20 [Rx] Famotidine [Pepcid] 20 mg PO BID #30 tablet 06/13/20 [Rx] predniSONE 10 mg PO DAILY #30 tab 06/13/20 [Rx] Follow up Appointment(s)/Referral(s): Naomi Carmen MD [Primary Care Provider] - 1-2 days Patient Instructions/Handouts: Mononucleosis (GEN) Discharge Disposition: HOME SELF-CARE
== END 2020-06-10 15:55 | disposition home or self-care (01) ==
LOC: EC 12:56 → 1SOBS 14:10
PROVIDERS: ADMIT Internal Medicine; ATTEND Internal Medicine
DX: J02.9 Acute pharyngitis, unspecified (principal); B27.90 Infectious mononucleosis, unspecified without complication; D72.820 Lymphocytosis (symptomatic); J34.2 Deviated nasal septum; J34.3 Hypertrophy of nasal turbinates; J35.1 Hypertrophy of tonsils; R13.10 Dysphagia, unspecified
CPT/HCPCS: 96376 ×2; 96361; 96365; 96375; 99285; 36415; 80053 ×2; 85025 ×2; 86308; 71046; G0378 ×2; J1100 ×3; J2930; J0696

== ENCOUNTER 2020-06-11 11:59 | Observation (INO) | payer OTHER ==
[2020-06-11] MEDS ORDERED: DEXAMETHASONE SOD PHOSPHATE 4 MG/ML 1 ML VIAL IV STA (12:10)
[2020-06-11 13:03] LABS: HGB 14.5 gm/dL (13.0-17.5); MCH 27.7 pg (25.0-35.0); MCHC 33.1 g/dL (31.0-37.0); MCV 83.8 fL (80.0-100.0); Mean Platelet Volume 6.7; Platelet Count 219 k/uL (150-450); RBC 5.25 m/uL (4.30-5.90); RDW 13.6 % (11.5-15.5); WBC 13.3 k/uL (3.8-10.6)
[2020-06-11 13:08] LABS: ALT 216 U/L (4-49); AST 54 U/L (17-59); African American GFR (CKD) >90 (>60 ml/min/1.73 sqM); Albumin 4.5 g/dL (3.5-5.0); Alkaline Phosphatase 95 U/L (38-126); Anion Gap 7 mmol/L; Blood Urea Nitrogen 21 mg/dL (9-20); Calcium 9.7 mg/dL (8.4-10.2); Carbon Dioxide 28 mmol/L (22-30); Chloride 102 mmol/L (98-107); Glucose 109 mg/dL (74-99); Non-African American GFR(CKD) >90 (>60 ml/min/1.73 sqM); Potassium 4.7 mmol/L (3.5-5.1); Sodium 137 mmol/L (137-145); Total Bilirubin 0.8 mg/dL (0.2-1.3); Total Protein 8.7 g/dL (6.3-8.2)
[2020-06-11 13:28] LABS: Lymphocytes # (M) 5.99 k/uL (1.0-4.8); Monocytes # (M) 1.33 k/uL (0-1.0); Neutrophils # (M) 5.99 k/uL (1.3-7.7); Neutrophils % (M) 45 %; Nucleated Red Blood Cells 0 /100 WBC (0-0); Total Cells Counted 100
[2020-06-11] MEDS ORDERED: SODIUM CHLORIDE 0.9% 500 ML 500 ML IV ONE (13:30)
[2020-06-11] MEDS: SODIUM CHLORIDE 0.9% 1,000 ML IV SCH (13:45)
--- NOTE | 2020-06-11 14:03 | CT ---
EXAMINATION TYPE: CT soft tissue neck w con DATE OF EXAM: 06/11/2020 COMPARISON: None HISTORY: Mild, rule out development of abscess CT DLP: 330 mGycm CONTRAST: Patient injected with 100 mL of Isovue 300. TECHNIQUE: Axial images at 3 mm thick sections. Reconstructed images in the coronal plane and sagitt al plane are reviewed. FINDINGS: Limited CT sections are obtained the lung apices. The lung apices appear clear. CT neck: The torus tubarius and fossa of Rosenmuller are normal. Computer T[employer] Librarian spaces are normal. Para nasal sinuses and mastoid air cells are clear. Parotid glands appear normal and symmetrical. Submandibular glands, are normal. Parapharyngeal spac es are normal. There are multiple nonenlarged lymph nodes present bilaterally. This includes bilateral submandibular glands measuring 1.1 and 1.0 cm in transverse dimension tonsillar pillars are markedly enlarged. No underlying abscess or mass is identified. There are additional anterior and posterior triangle lymph nodes present. There appears to be some swelling at the base of the tongue. Underlying mass is not identified. Vocal cord level appear symmetrical. Thyroid as visualized is normal. Osseous structures are normal. IMPRESSIONS: 1. Extensive bilateral adenopathy which is enlarged. 2. Markedly enlarged bilateral tonsils and fullness at the base of the tongue. Underlying abscess for mation or masses are not identified.
[2020-06-11] MEDS ORDERED: NALOXONE 0.4 MG/ML 1 ML VIAL IV PRN (14:38)
--- NOTE | 2020-06-11 14:40 | ED ---
ENT HPI - General Chief complaint: ENT Stated complaint: recheck - cannot swallow Time Seen by Provider: 06/11/20 12:04 Source: patient Mode of arrival: ambulatory Limitations: no limitations - History of Present Illness Initial comments: 24-year-old male recently mononucleosis with enlarged bilateral tonsils presents to ER for inability to swallow pills or solid foods. Patient states that secondary to the larger of the tonsils is unable to swallow his pills that help him decrease the swelling he states he was doing well he felt the swelling was improving when he is on IV steroids. Patient states that he wanted to leave when he was admitted however he feels that this may not be the best choice as he cannot tolerate Oral Tablets to Help Him Get Better. Patient Denies Any New Unilateral Swelling States He Looks at the Same He States He however he has not had anything substantial to eat in 3 days. Patient denies abdominal pain including LUQ. Patient has no additional complaints, he has muffled voice but does not appears to be in respiratory distress, tolerating oral secretions, no tripoding. - Related Data Previous Rx's Medication Instructions Recorded Dexamethasone [Decadron] 0.75 mg PO DIRECTED #24 tablet 06/10/20 Allergies Allergy/AdvReac Type Severity Reaction Status Date / Time No Known Allergies Allergy Verified 06/11/20 14:10 Review of Systems ROS Statement: Those systems with pertinent positive or pertinent negative responses have been documented in the HPI. ROS Other: All systems not noted in ROS Statement are negative. Past Medical History Past Medical History: No Reported History History of Any Multi-Drug Resistant Organisms: None Reported Past Surgical History: No Surgical Hx Reported Past Anesthesia/Blood Transfusion Reactions: No Reported Reaction Past Psychological History: No Psychological Hx Reported Smoking Status: Vaper Past Alcohol Use History: Rare Past Drug Use History: None Reported General Exam - General Exam Comments Initial Comments: General: The patient is awake and alert, in no distress Eye: Pupils are equal, round and reactive to light, extra-ocular movements are intact. No nystagmus. There is normal conjunctiva bilaterally. No signs of icterus. Ears, nose, mouth and throat: There are moist mucous membranes and no oral lesions. Significantly erythematous oropharynx with enlarged bilateral tonsils that are touching with exudates patient is muffled voice he is tolerating oral secretions no tripoding no stridor Neck: The neck is supple, there is no tenderness or JVD. Respiratory: Respirations are non-labored. No stridor. Gastrointestinal: Soft, non-distended, non-tender abdomen without masses or org anomegaly noted. There is no rebound or guarding present. Musculoskeletal: Normal ROM, no tenderness. Strength 5/5. Sensation intact. Pulses equal bilaterally 2+. Neurological: A&O x 3. CN II-XII intact, There are no obvious motor or sensory deficits. Coordination appears grossly intact. Speech is normal. Skin: Skin is warm and dry and no rashes or lesions are noted. Psychiatric: Cooperative, appropriate mood & affect, normal judgment. Limitations: no limitations Course Vital Signs 06/11/20 06/11/20 12:01 15:00 Temperature 99.1 F 99.8 F H Pulse Rate 111 H 98 Respiratory 18 18 Rate Blood Pressure 132/84 128/71 O2 Sat by Pulse 98 96 Oximetry Medical Decision Making - Medical Decision Making Labs stable in comparison wiht previous. Pt CT (-) for acute abscess/secondary infection. Patient is unable to tolerate oral intak secondary to tonsil size. Will admit for monitoring IV steroids.Dr. Marie agreeable to care plan. Pt prefers admission at this time. - Lab Data Result diagrams: 06/11/20 12:39 06/11/20 12:39 Lab Results 06/11/20 06/11/20 Range/Units 12:39 12:39 WBC 13.3 H (3.8-10.6) k/uL RBC 5.25 (4.30-5.90) m/uL Hgb 14.5 (13.0-17.5) gm/dL Hct 44.0 (39.0-53.0) % MCV 83.8 (80.0-100.0) fL MCH 27.7 (25.0-35.0) pg MCHC 33.1 (31.0-37.0) g/dL RDW 13.6 (11.5-15.5) % Plt Count 219 (150-450) k/uL Neutrophils % (Manual) 45 % Lymphocytes % (Manual) 45 % Monocytes % (Manual) 10 % Neutrophils # (Manual) 5.99 (1.3-7.7) k/uL Lymphocytes # (Manual) 5.99 H (1.0-4.8) k/uL Monocytes # (Manual) 1.33 H (0-1.0) k/uL Nucleated RBCs 0 (0-0) /100 WBC Manual Slide Review Performed Sodium 137 (137-145) mmol/L Potassium 4.7 (3.5-5.1) mmol/L Chloride 102 (98-107) mmol/L Carbon Dioxide 28 (22-30) mmol/L Anion Gap 7 mmol/L BUN 21 H (9-20) mg/dL Creatinine 0.85 (0.66-1.25) mg/dL Est GFR (CKD-EPI)AfAm >90 (>60 ml/min/1.73 sqM) Est GFR (CKD-EPI)NonAf >90 (>60 ml/min/1.73 sqM) Glucose 109 H (74-99) mg/dL Calcium 9.7 (8.4-10.2) mg/dL Total Bilirubin 0.8 (0.2-1.3) mg/dL AST 54 (17-59) U/L ALT 216 H (4-49) U/L Alkaline Phosphatase 95 (38-126) U/L Total Protein 8.7 H (6.3-8.2) g/dL Albumin 4.5 (3.5-5.0) g/dL Disposition Clinical Impression: Unable to eat, Dehydration, Mononucleosis, Enlarged tonsils Disposition: ADMITTED IP TO THIS [facility] Condition: Stable Is patient prescribed a controlled substance at d/c from ED?: No Time of Disposition: 14:40 Decision to Admit Reason: Admit from EC Decision Date: 06/11/20 Decision Time: 14:40
[2020-06-11] MEDS: KETOROLAC 15 MG/ML 1 ML VIAL IVP PRN ×2 (15:45→21:30)
[2020-06-11] MEDS: DEXAMETHASONE SOD PHOSPHATE 4 MG/ML 1 ML VIAL IV SCH ×2 (17:11→23:52)
--- NOTE | 2020-06-11 19:20 | P.HPIM ---
History of Present Illness H&P Date: 06/11/20 Chief Complaint: Difficuly swallowing Patient is a 24-year-old male without significant past medical history came to ER with complaints of sore throat and difficulty swallowing which has been getting worse over the past 2 weeks. Patient was initially seen 05/31/2020 in the ER with complaints of fever headache fatigue and headache and body aches. Patient was treated for acute viral syndrome and also given antibiotic course. Patient was seen by primary care physician and had multiple antibiotic courses with Augmentin and Keflex. Patient was discharged from hospital yesterday with Medrol Dosepak after seen by ENT while in the hospital. Patient was unable to swallow medications and due to worsening symptoms and difficulty to swallow and eat, patient presents back to ER. Chest x-ray showed no acute cardiopulmonary process. Patient had coronavirus PCR and influenza and strep throat -ve on 05/31/2020 Lab data showed WBC 13.3, hemoglobin 14.5, lymphocytes 5.99 Alva is improving from previous admission. AST 54 ALT 216 and alk phos 95 Heterophile antibody done on 06/10/2020 is positive. Review of Systems Constitutional: Patient denies any fever or chills . No generalized weakness or weight loss. Abdomen: Patient denied nausea vomiting and diarrhea and abdominal pain. Cardiovascular: Patient denies any chest pain or short of breath no palpitations. Respiratory: patient denied any cough or sputum production. No shortness of breath. Throat pain and diff swallowing. Neurologic: Patient denied any numbness or tingling headache. Musculoskeletal: Patient denies any complaints of joint swelling or deformity. Skin: Negative Psychiatric: Negative Endocrine: No heat or cold intolerance. No recent weight gain. Genitourinary: No dysuria or hematuria. All other 14 point ROS negative except the above Past Medical History Past Medical History: No Reported History Additional Past Medical History / Comment(s): [place] History of Any Multi-Drug Resistant Organisms: None Reported Past Surgical History: No Surgical Hx Reported Past Anesthesia/Blood Transfusion Reactions: No Reported Reaction Past Psychological History: No Psychological Hx Reported Smoking Status: Vaper Past Alcohol Use History: Rare Past Drug Use History: None Reported Medications and Allergies Home Medications Medication Instructions Recorded Confirmed Type Dexamethasone [Decadron] 0.75 mg PO DIRECTED #24 tablet 06/10/20 06/11/20 Rx Allergies Allergy/AdvReac Type Severity Reaction Status Date / Time No Known Allergies Allergy Verified 06/11/20 14:10 Physical Exam Vitals: Vital Signs Temp Pulse Pulse Resp BP BP Pulse Ox 06/11/20 15:20 99.2 F 104 H 16 131/71 95 06/11/20 15:00 99.8 F H 98 18 128/71 96 06/11/20 12:01 99.1 F 111 H 18 132/84 98 Intake and Output 06/11/20 06/11/20 06/11/20 06:59 14:59 22:59 Other: # Voids 1 Weight 220 kg 220 kg PHYSICAL EXAMINATION: Patient is lying in the bed comfortably, no acute distress, awake alert and oriented.. HEENT: Normocephalic. Neck is supple. Pupils reactive. Nostrils clear. Oral cavity is moist.Tonsillar enlargement with some exudate. Pharyngeal erythema. Ears reveal no drainage. Neck reveals no JVD, carotid bruits, or thyromegaly. CHEST EXAMINATION: Trachea is central. Symmetrical expansion. Lung briceno clear to auscultation and percussion. CARDIAC: Normal S1, S2 with no gallops. No murmurs ABDOMEN: Soft. Bowel sounds normal. No organomegaly. No abdominal bruits. Extremities: reveal no edema. No clubbing or cyanosis Neurologically awake, alert, oriented x3 with well-coordinated movements. No focal deficits noted Skin: No rash or skin lesions. Psychiatric: Coperative. Nonsuicidal Musculoskeletal: No joint swelling or deformity. Normal range of motion. Results CBC & Chem 7: 06/11/20 12:39 06/11/20 12:39 Labs: Abnormal Lab Results - Last 24 Hours (Table) 06/11/20 06/11/20 Range/Units 12:39 12:39 WBC 13.3 H (3.8-10.6) k/uL Lymphocytes # (Manual) 5.99 H (1.0-4.8) k/uL Monocytes # (Manual) 1.33 H (0-1.0) k/uL BUN 21 H (9-20) mg/dL Glucose 109 H (74-99) mg/dL ALT 216 H (4-49) U/L Total Protein 8.7 H (6.3-8.2) g/dL Thrombosis Risk Factor Assmnt - DVT/VTE Prophylaxis DVT/VTE Prophylaxis: Pharmacologic Prophylaxis ordered - Choose All That Apply Any of the Below Risk Factors Present?: Yes Assessment and Plan Assessment: Acute pharyngitis secondary to infectious mononucleosis Lymphocytosis and Elevated liver enzymes secondary to IM Difficulty swallowing and throat pain DVT prophylaxis with SCDs Plan: Patient will be continued on gentle IV hydration. Was given Decadron 6 mg x 1 in the ER. Continue the Decadron 4 mg every 6 hourly IV. Continue to monitor for any airway compromise. Discussed with the patient and his mother at bedside in detail.
[2020-06-12] MEDS: SODIUM CHLORIDE 0.9% 1,000 ML IV SCH ×2 (02:50→16:17)
[2020-06-12] MEDS: DEXAMETHASONE SOD PHOSPHATE 4 MG/ML 1 ML VIAL IV SCH ×3 (05:34→17:16)
[2020-06-12] MEDS: KETOROLAC 15 MG/ML 1 ML VIAL IVP PRN ×3 (05:35→22:39)
[2020-06-12] MEDS: PANTOPRAZOLE 40 MG/10 ML VIAL IVP SCH (16:17)
[2020-06-12] MEDS ORDERED: oxyCODONE-APAP 5-325MG 1 EACH TAB PO PRN (18:17)
--- NOTE | 2020-06-12 18:37 | P.GSCN ---
History of Present Illness Consult date: 06/12/20 Reason for Consult: Failure to progress with outpatient therapy for mono. Requesting physician: Ayana Horner History of present illness: This patient is a 24-year-old male who developed severe tonsillitis, hot potato voice and cervical lymphadenopathy 2 weeks ago. Was found have mononucleosis and was admitted and treated. Unfortunately he did not improve significantly and return to the emergency room where a repeat was readmitted. The patient was placed on oral Decadron outpatient. He has severe odontophagia and dysphagia with significant cervical lymphadenopathy. Again he was not improving with medical therapy on outpatient basis utilizing just Decadron orally. See ER H and P. Review of Systems - Constitutional Reports anorexia, Reports fatigue - EENT Eyes: denies as per HPI Ears: deny: decreased hearing, ear discharge Ears, nose, mouth and throat: Reports as per HPI - Cardiovascular Reports as per HPI - Respiratory Reports as per HPI - Gastrointestinal Reports as per HPI - Genitourinary Reports as per HPI - Musculoskeletal Reports as per HPI - Integumentary Reports as per HPI - Neurological Reports as per HPI - Psychiatric Reports as per HPI - Endocrine Reports as per HPI - Hematologic/Lymphatic Reports as per HPI - Allergic/Immunologic Reports as per HPI Past Medical History Past Medical History: No Reported History Additional Past Medical History / Comment(s): Angelina History of Any Multi-Drug Resistant Organisms: None Reported Past Surgical History: No Surgical Hx Reported Past Anesthesia/Blood Transfusion Reactions: No Reported Reaction Past Psychological History: No Psychological Hx Reported Smoking Status: Vaper Past Alcohol Use History: Rare Past Drug Use History: None Reported Medications and Allergies Home Medications Medication Instructions Recorded Confirmed Type Dexamethasone [Decadron] 0.75 mg PO DIRECTED #24 tablet 06/10/20 06/11/20 Rx Clindamycin HCl 300 mg PO Q8HR #21 cap 06/12/20 Rx Allergies Allergy/AdvReac Type Severity Reaction Status Date / Time No Known Allergies Allergy Verified 06/11/20 14:10 Surgical - Exam Osteopathic Statement: *. No significant issues noted on an osteopathic structural exam other than those noted in the History and Physical/Consult. Vital Signs Temp Pulse Resp BP Pulse Ox 99.1 F 111 H 18 132/84 98 06/11/20 12:01 06/11/20 12:01 06/11/20 12:01 06/11/20 12:01 06/11/20 12:01 - General well developed, well nourished, moderate pain - Eyes PERRL, normal ocular movement - ENT Pt with severe exudative tonsillitis with severe 4/4 hypertrophy normal pinna, normal nares, normal mucosa, no hearing loss, no congestion - Neck Bilateral cervical lymphadenopathy - Respiratory normal expansion, normal respiratory effort - Cardiovascular Rhythm: regular - Abdomen Abdomen: soft - Integumentary no rash, no growths - Neurologic normal coordination, normal sensation - Musculoskeletal normal gait - Psychiatric oriented to time, oriented to person, oriented to place Results - Labs 06/11/20 12:39 06/11/20 12:39 Assessment and Plan (1) Acute tonsillitis Current Visit: Yes Status: Acute Code(s): J03.90 - ACUTE TONSILLITIS, UNSPECIFIED SNOMED Code(s): 49650080 Plan: Antibiotics (cleocin) and steroids recommended. Will treat with more significant doses of solumedrol and cancel the decadron. Percocet added to therapy for pain control. Recommend prednisone in tapering dose after discharge from 60 mg per day for 3-5 days then drop down over 2 weeks. Cleocin orally as an outpatient for 7 days after discharge. Follow up with PCP after discharge. Angelina counseling performed. I will sign off on this case today and will return if requested. Thank you. Time with Patient: Greater than 30
[2020-06-12] MEDS: methylPREDNISolone SOD SUCCI 125 MG/2 ML VIAL IV SCH (22:29)
[2020-06-12] MEDS: CLINDAMYCIN 600 MG in DEXTROSE 5% IN WATER 50 ML IVPB SCH ×4 (22:31→23:47)
[2020-06-13] MEDS: methylPREDNISolone SOD SUCCI 125 MG/2 ML VIAL IV SCH ×3 (00:31→16:04)
[2020-06-13] MEDS: CLINDAMYCIN 600 MG in DEXTROSE 5% IN WATER 50 ML IVPB SCH ×4 (04:01→12:08)
[2020-06-13] MEDS: SODIUM CHLORIDE 0.9% 1,000 ML IV SCH (04:03)
[2020-06-13] MEDS: KETOROLAC 15 MG/ML 1 ML VIAL IVP PRN (06:16)
[2020-06-13 07:47] VITALS: BP 112/74; PULSE 64; RESP 14; TEMP 97.7
[2020-06-13 07:54] LABS: ALT 111 U/L (4-49); AST 24 U/L (17-59); African American GFR (CKD) >90 (>60 ml/min/1.73 sqM); Alkaline Phosphatase 81 U/L (38-126); Anion Gap 8 mmol/L; Blood Urea Nitrogen 20 mg/dL (9-20); Calcium 9.6 mg/dL (8.4-10.2); Carbon Dioxide 29 mmol/L (22-30); Chloride 102 mmol/L (98-107); Glucose 127 mg/dL (74-99); Non-African American GFR(CKD) >90 (>60 ml/min/1.73 sqM); Potassium 4.8 mmol/L (3.5-5.1); Sodium 139 mmol/L (137-145); Total Bilirubin 0.7 mg/dL (0.2-1.3); Total Protein 8.1 g/dL (6.3-8.2)
[2020-06-13] MEDS: PANTOPRAZOLE 40 MG/10 ML VIAL IVP SCH (08:19)
--- NOTE | 2020-06-13 10:23 | P.PN ---
Subjective Progress Note Date: 06/12/20 Patient was diagnosed with the infectious mononucleosis and patient does have significant enlargement of tonsils and there is a concern of complex of the airway because of which patient was admitted with IV steroids and patient was admitted for similar complaints was subsequently discharged to the hospital although patient was unable to eat or drink and unable to eat any take any of his medications because of the tonsillar enlargement because of which patient came to ER and patient was given IV steroids and admitted her to the hospital. Patient had a tonsillitis in the past as well patient had issues with that tonsillar enlargement in the past as well. Patient is sexually active with the one partner. Other tests for STD are all negative. Patient also did use antiviral course with Augmentin and Keflex. I agree ordered strep test because of typical appearance of his tonsils with the white patches over the tonsils. had a rapid strep test in the ER which was negative. Constitutional: Denied any fatigue denied any fever. Cardio vascular: denied any chest pain, palpitations Gastrointestinal denied any nausea vomiting Pulmonary: Denied any shortness of breath cough Neurologic denied any new focal deficits All inpatient medications were reviewed and appropriate changes in these me dications as dictated in the interval history and assessment and plan. Objective - Vital Signs Vital signs: Vital Signs Temp 97.7 F 06/13/20 07:45 Pulse 64 06/13/20 07:45 Resp 14 06/13/20 07:45 BP 112/74 06/13/20 07:45 Pulse Ox 95 06/13/20 02:25 Intake & Output 06/12/20 06/13/20 06/13/20 18:59 06:59 18:59 Intake Total 675 75 Balance 675 75 Intake: Intake, IV Titration 675 75 Amount Sodium Chloride 0.9% 1, 675 75 000 ml @ 75 mls/hr IV . [id number] [facility] Rx#:[id number] Other: Voiding Method Toilet # Voids 1 - Exam PHYSICAL EXAMINATION: GENERAL: The patient is alert and oriented x3, not in any acute distress. Well developed, well nourished. HEENT: Pupils are round and equally reacting to light. EOMI. No scleral icterus. No conjunctival pallor. Normocephalic, atraumatic. No pharyngeal erythema. No t hyromegaly. has a significant tonsillar enlargement barely can see the posterior pharynx is completely obliterated with enlarged tonsils bilaterally with white patches and tonsillar exudates. CARDIOVASCULAR: S1 and S2 present. No murmurs, rubs, or gallops. PULMONARY: Chest is clear to auscultation, no wheezing or crackles. ABDOMEN: Soft, nontender, nondistended, normoactive bowel sounds. No palpable organomegaly. MUSCULOSKELETAL: No joint swelling or deformity. EXTREMITIES: No cyanosis, clubbing, or pedal edema. NEUROLOGICAL: Gross neurological examination did not reveal any focal deficits. SKIN: No rashes. - Labs CBC & Chem 7: 06/11/20 12:39 06/13/20 07:20 Labs: Abnormal Lab Results - Last 24 Hours (Table) 06/13/20 Range/Units 07:20 Glucose 127 H (74-99) mg/dL ALT 111 H (4-49) U/L Microbiology - Last 24 Hours (Table) 06/12/20 Unknown Group A Strep Throat Culture - Preliminary Throat Assessment and Plan Plan: Acute pharyngitis secondary to infectious mononucleosis Lymphocytosis and Elevated liver enzymes secondary to IM Difficulty swallowing and throat pain tonsillar enlargement, but there is no s ignificant stridor patient will continued on systemic steroids along with GI prophylaxis. ENT was consulted. -Gastroesophageal Reflux disease secondary to systemic steroids.
--- NOTE | 2020-06-13 17:07 | P.DS ---
Providers Date of admission: 06/11/20 14:38 Attending physician: Ayana Horner Consults: 06/12/20 15:17 Consult Physician Routine Consulting Provider: [place] Consult Reason/Comments: acute mono/tonsilar edema Do you want consulting provider notified?: Yes Primary care physician: Nella Crawley [facility] Course: Patient was diagnosed with the infectious mononucleosis and patient does have significant enlargement of tonsils and there is a concern of complex of the airway because of which patient was admitted with IV steroids and patient was admitted for similar complaints was subsequently discharged to the hospital although patient was unable to eat or drink and unable to eat any take any of his medications because of the tonsillar enlargement because of which patient came to ER and patient was given IV steroids and admitted her to the hospital. Patient had a tonsillitis in the past as well patient had issues with that tonsillar enlargement in the past as well. Patient is sexually active with the one partner. Other tests for STD are all negative. Patient also did use antiviral course with Augmentin and Keflex. I agree ordered strep test because of typical appearance of his tonsils with the white patches over the tonsils. had a rapid strep test in the ER which was negative. 06/13/2020 Patient the is all able to tolerate a diet but is able to take by mouth med ications at this time patient will be discharged today his tonsillar enlargement improved and patient will be discharged today. Patient the streptococcal testing is negative. Patient will follow-up with the ENT ENT is recommending clindamycin and weaning dose of prednisone which will be ordered. Along with Pepcid. PHYSICAL EXAMINATION: GENERAL: The patient is alert and oriented x3, not in any acute distress. Well developed, well nourished. HEENT: Pupils are round and equally reacting to light. EOMI. No scleral icterus. No conjunctival pallor. Normocephalic, atraumatic. No pharyngeal erythema. No thyromegaly. Still has enough and nonsteroidal enlargement but bit better compared to yesterday completely obliterated with enlarged tonsils bilaterally with white patches and tonsillar exudates. CARDIOVASCULAR: S1 and S2 present. No murmurs, rubs, or gallops. PULMONARY: Chest is clear to auscultation, no wheezing or crackles. ABDOMEN: Soft, nontender, nondistended, normoactive bowel sounds. No palpable organomegaly. MUSCULOSKELETAL: No joint swelling or deformity. EXTREMITIES: No cyanosis, clubbing, or pedal edema. NEUROLOGICAL: Gross neurological examination did not reveal any focal deficits. SKIN: No rashes. Assessment and Plan Plan: Acute pharyngitis with acute tonsillitis tonsillar enlargement secondary to infectious mononucleosis management as mentioned above patient will be prescribed per clindamycin as recommended by ENT Lymphocytosis and Elevated liver enzymes secondary to IM Difficulty swallowing and throat pain tonsillar enlargement, but there is no significant stridor patient will continued on systemic steroids along with GI prophylaxis. ENT evaluated the patient -Gastroesophageal Reflux disease secondary to systemic steroids. Patient Condition at Discharge: Stable Plan - Discharge Summary Discharge Rx Participant: No New Discharge Prescriptions: New Clindamycin HCl 300 mg PO Q8HR #21 cap Famotidine [Pepcid] 20 mg PO BID #30 tablet predniSONE 10 mg PO DAILY #30 tab Continue Dexamethasone [Decadron] 0.75 mg PO DIRECTED #24 tablet Discharge Medication List Dexamethasone [Decadron] 0.75 mg PO DIRECTED #24 tablet 06/10/20 [Rx] Clindamycin HCl 300 mg PO Q8HR #21 cap 06/12/20 [Rx] Famotidine [Pepcid] 20 mg PO BID #30 tablet 06/13/20 [Rx] predniSONE 10 mg PO DAILY #30 tab 06/13/20 [Rx] Follow up Appointment(s)/Referral(s): Naomi Carmen MD [Primary Care Provider] - 3 Days Jakob Walton MD [STAFF PHYSICIAN] - 1 Week Activity/Diet/Wound Care/Special Instructions: Off work until seen and cleared by physician at follow up appointment. Discharge Disposition: HOME SELF-CARE
== END 2020-06-13 17:12 | disposition home or self-care (01) ==
LOC: EC 11:59 → 1SOBS 14:38 → INTOOBSV 06-13 09:18 → OBSVTOIN 06-13 09:18 → UNDODISOB 06-13 17:12 → UNDODISIN 06-13 17:12
PROVIDERS: ADMIT Hospitalist; ATTEND Hospitalist
DX: J02.9 Acute pharyngitis, unspecified (principal); B27.90 Infectious mononucleosis, unspecified without complication; E86.0 Dehydration; J35.1 Hypertrophy of tonsils; K21.9 Gastro-esophageal reflux disease without esophagitis; T38.0X5A Adverse effect of glucocorticoids and synthetic analogues, initial encounter
CPT/HCPCS: 96361 ×3; 96365; 96366; 96375 ×2; 96376 ×3; 96374; 99285; 36415; 80053 ×2; 85025; 87081; 87430; 70491; G0378 ×4; J1100 ×2; J2930 ×2; J1885 ×3; C9113 ×2; Q9967

== ENCOUNTER → 2020-07-04 | Outpatient (CLI) | payer OTHER ==
[2020-07-05 06:36] LABS: Herpes simplex I and/or II IgM 0.86 INDEX (<=0.90); Herpes simplex IgG I Ab 0.37 (< or = 0.90); Herpes simplex IgG II Ab 0.33 (< or = 0.90)
== END | disposition home or self-care (01) ==
LOC: LABWHC1 13:04
PROVIDERS: ATTEND Internal Medicine
DX: Z20.2 Contact with and (suspected) exposure to infections with a predominantly sexual mode of transmission (principal)
CPT/HCPCS: 36415; 86694; 86695; 86696

== ENCOUNTER 2021-01-29 13:01 | Emergency (ER) | payer OTHER ==
[2021-01-29] MEDS ORDERED: cefTRIAXone 1,000 MG VIAL (IM USE) IM STA (14:31)
[2021-01-29 14:50] LABS: Appearance,Urine Clear (Clear); Bilirubin,Urine Negative (Negative); Blood,Urine Negative (Negative); Color,Urine Yellow; Glucose,Urine (UA) Negative (Negative); Ketones,Urine Negative (Negative); Leukocyte Esterase,Urine Trace (Negative); Mucus,Urine Rare /hpf; Nitrite,Urine Negative (Negative); PH, Urine 6.5 (5.0-8.0); Protein,Urine Negative (Negative); RBC,Urine 1 /hpf (0-5); Specific Gravity,Urine 1.027 (1.001-1.035); Squamous Epithelial Cell,Urine <1 /hpf (0-4); Urobilinogen,Urine <2.0 mg/dL (<2.0); WBC,Urine <1 /hpf (0-5)
--- NOTE | 2021-01-29 14:59 | ED ---
General Adult HPI - General Chief complaint: Recheck/Abnormal Lab/Rx Stated complaint: STD testing Time Seen by Provider: 01/29/21 14:10 Source: patient, RN notes reviewed Mode of arrival: ambulatory - History of Present Illness Initial comments: Patient is a 25-year-old male that presents to emergency room complaining of potential exposure to HIV and other STDs. He notes that he was recently in [place] over the weekend where he got into some promiscuous activity with both men and women. He did note that he did receive anal intercourse and gave anal intercourse. He notes that he does not trust any of the people that he was with saying that they were negative for any STI's. He notes that he can emergency room to get an STD check an HIV test and some post exposure prophylaxis. He noted that he does have very minimal bright red blood per rectum on wiping and does have a history of hemorrhoids. He was informed that receptive anal intercourse can cause some tearing and soft tissue trauma leading the blood per rectum. He denied any urethral discharge or discomfort on urination. He was in no apparent distress or pain while sitting up in bed during exam and interview. He denied any chest pain shortness of breath headache nausea vomiting diarrhea constipation fever fatigue chills. - Related Data Previous Rx's Medication Instructions Recorded Dexamethasone [Decadron] 0.75 mg PO DIRECTED #24 tablet 06/10/20 Clindamycin HCl 300 mg PO Q8HR #21 cap 06/12/20 Famotidine [Pepcid] 20 mg PO BID #30 tablet 06/13/20 predniSONE 10 mg PO DAILY #30 tab 06/13/20 Doxycycline Monohydrate [Monodox] 100 mg PO Q12HR #20 cap 01/29/21 Emtricitabine/Tenofovir (Tdf) 1 tab PO DAILY #28 tab 01/29/21 [Truvada 200 mg-300 mg Tablet] Raltegravir Potassium [Isentress] 400 mg PO Q12H #56 tab 01/29/21 Allergies Allergy/AdvReac Type Severity Reaction Status Date / Time No Known Allergies Allergy Verified 01/29/21 13:50 Review of Systems ROS Statement: Those systems with pertinent positive or pertinent negative responses have been documented in the HPI. ROS Other: All systems not noted in ROS Statement are negative. Past Medical History Past Medical History: No Reported History Additional Past Medical History / Comment(s): Christian History of Any Multi-Drug Resistant Organisms: None Reported Past Surgical History: No Surgical Hx Reported Past Anesthesia/Blood Transfusion Reactions: No Reported Reaction Past Psychological History: No Psychological Hx Reported Smoking Status: Vaper Past Alcohol Use History: Occasional Past Drug Use History: None Reported General Exam General appearance: alert, in no apparent distress Head exam: Present: atraumatic, normocephalic, normal inspection Eye exam: Present: normal appearance, PERRL, EOMI. Absent: scleral icterus, conjunctival injection, periorbital swelling Neck exam: Present: normal inspection Respiratory exam: Present: normal lung sounds bilaterally. Absent: respiratory distress, wheezes, rales, rhonchi, stridor Cardiovascular Exam: Present: regular rate, normal rhythm, normal heart sounds. Absent: systolic murmur, diastolic murmur, rubs, gallop, clicks GI/Abdominal exam: Present: soft, normal bowel sounds. Absent: distended, tenderness, guarding, rebound, rigid Rectal exam: Present: deferred exam: Present: normal inspection, circumcision. Absent: testicular tenderness, urethral discharge, scrotal swelling Extremities exam: Present: normal inspection, full ROM, normal capillary refill. Absent: tenderness, pedal edema, joint swelling, calf tenderness Neurological exam: Present: alert, oriented X3, CN II-XII intact Psychiatric exam: Present: normal affect, normal mood Skin exam: Present: warm, dry, intact, normal color. Absent: rash Course Vital Signs 01/29/21 01/29/21 13:44 15:01 Temperature 97.8 F Pulse Rate 78 69 Respiratory 18 20 Rate Blood Pressure 136/80 112/74 O2 Sat by Pulse 98 97 Oximetry Medical Decision Making - Medical Decision Making 25-year-old male with possible exposure to HIV and other STDs in the last 72 hours. HIV 1 and 2 antibody test, urinalysis, gonorrhea and chlamydia test ordered. 1 g of Rocephin ordered. Case discussed with Dr. Jose, patient discharge home with close follow-up to primary care. - Lab Data Lab Results 01/29/21 Range/Units 14:40 Urine Color Yellow Urine Appearance Clear (Clear) Urine pH 6.5 (5.0-8.0) Ur Specific [place] 1.027 (1.001-1.035) Urine Protein Negative (Negative) Urine Glucose (UA) Negative (Negative) Urine Ketones Negative (Negative) Urine Blood Negative (Negative) Urine Nitrite Negative (Negative) Urine Bilirubin Negative (Negative) Urine Urobilinogen <2.0 (<2.0) mg/dL Ur Leukocyte Esterase Trace H (Negative) Urine RBC 1 (0-5) /hpf Urine WBC <1 (0-5) /hpf Ur Squamous Epith Cells <1 (0-4) /hpf Urine Mucus Rare H (None) /hpf Disposition Clinical Impression: Sexually transmitted disease exposure Disposition: HOME SELF-CARE Condition: Stable Instructions (If sedation given, give patient instructions): Sexually Transmitted Diseases (ED), Safe Sex (ED), Condom Use (ED) Additional Instructions: Please return to the Emergency Department if symptoms worsen or any other concerns. Follow-up with primary care regularly and closely. Practice safe sex practices involving condoms and being open about infection history. Take antibiotics and post exposure prophylaxis as prescribed until complete. Prescriptions: Raltegravir Potassium [Isentress] 400 mg PO Q12H #56 tab Doxycycline Monohydrate [Monodox] 100 mg PO Q12HR #20 cap Emtricitabine/Tenofovir (Tdf) [Truvada 200 mg-300 mg Tablet] 1 tab PO DAILY #28 tab Is patient prescribed a controlled substance at d/c from ED?: No Referrals: Naomi Carmen MD [Primary Care Provider] - 1-2 days Time of Disposition: 15:47
[2021-01-29 16:13] VITALS: BP 127/70; PULSE 76; RESP 18; TEMP 98.5
[2021-01-29 20:22] LABS: HIV P24 AG Non-Reactive (Non-Reactive)
[2021-01-29 20:34] LABS: HIV 2 AB Non-Reactive (Non-Reactive); HIV AB P24 Non-Reactive (Non-Reactive)
[2021-01-30 13:18] LABS: C. trachomatis,PCR Negative (Neg,Equiv); Chlamydia trachomatis Source Urine; N. gonorrhoeae,PCR Negative (Neg,Equiv); Neisseria Source Urine
== END 2021-01-29 16:13 | disposition home or self-care (01) ==
LOC: EC 13:01
DX: Z20.2 Contact with and (suspected) exposure to infections with a predominantly sexual mode of transmission (principal); Z87.19 Personal history of other diseases of the digestive system; F17.290 Nicotine dependence, other tobacco product, uncomplicated
CPT/HCPCS: 36415; 81001; 87491; 87591; 87390; 99283; 96372; J0696; 99282

== ENCOUNTER 2021-03-24 20:58 | Emergency (ER) | payer OTHER ==
[2021-03-24] MEDS ORDERED: ACETAMINOPHEN TAB 500 MG TAB PO STA (21:34)
[2021-03-24] MEDS ORDERED: ONDANSETRON 4 MG/2 ML VIAL IVP STA (21:35)
[2021-03-24] MEDS ORDERED: IBUPROFEN 600 MG TAB PO STA (21:35)
[2021-03-24] MEDS ORDERED: SODIUM CHLORIDE 0.9% 1,000 ML IV STA ×2 (21:35)
[2021-03-24] MEDS ORDERED: SODIUM CHLORIDE 0.9% 500 ML 500 ML IV STA (21:35)
--- NOTE | 2021-03-24 21:59 | ED ---
Fever HPI - General Chief Complaint: Nausea/Vomiting/Diarrhea Stated Complaint: headache,SOB Time Seen by Provider: 03/24/21 21:31 Source: patient, RN notes reviewed, old records reviewed Mode of arrival: ambulatory Limitations: no limitations - History of Present Illness Initial Comments: This is a 25-year-old male recently freshman travel to [place]: A plain presented with fever bodyaches pains nausea vomiting and diarrhea. Diffuse body aches and pains. He was unsure of if anyone was sick during his travels. No significant medical history takes no medications. Patient did not no fever until today MD Complaint: fever, malaise -: days(s) Temperature Source: subjective Context: multiple patients with similar symptoms Associated Symptoms: chills, rigors, myalgias, nausea, vomiting Treatments Prior to Arrival: none - Related Data Previous Rx's Medication Instructions Recorded Dexamethasone [Decadron] 0.75 mg PO DIRECTED #24 tablet 06/10/20 Clindamycin HCl 300 mg PO Q8HR #21 cap 06/12/20 Famotidine [Pepcid] 20 mg PO BID #30 tablet 06/13/20 predniSONE 10 mg PO DAILY #30 tab 06/13/20 Doxycycline Monohydrate [Monodox] 100 mg PO Q12HR #20 cap 01/29/21 Emtricitabine/Tenofovir (Tdf) 1 tab PO DAILY #28 tab 01/29/21 [Truvada 200 mg-300 mg Tablet] Raltegravir Potassium [Isentress] 400 mg PO Q12H #56 tab 01/29/21 Allergies Allergy/AdvReac Type Severity Reaction Status Date / Time No Known Allergies Allergy Verified 01/29/21 13:50 Review of Systems ROS Statement: Those systems with pertinent positive or pertinent negative responses have been documented in the HPI. ROS Other: All systems not noted in ROS Statement are negative. Past Medical History Past Medical History: No Reported History Additional Past Medical History / Comment(s): [place] History of Any Multi-Drug Resistant Organisms: None Reported Past Surgical History: No Surgical Hx Reported Past Anesthesia/Blood Transfusion Reactions: No Reported Reaction Past Psychological History: No Psychological Hx Reported Smoking Status: Vaper Past Alcohol Use History: Occasional Past Drug Use History: None Reported General Exam Limitations: no limitations General appearance: alert, in no apparent distress Head exam: Present: atraumatic, normocephalic, normal inspection Eye exam: Present: normal appearance, PERRL, EOMI. Absent: scleral icterus, conjunctival injection, periorbital swelling ENT exam: Present: normal exam, mucous membranes moist Neck exam: Present: normal inspection. Absent: tenderness, meningismus, lymphadenopathy Respiratory exam: Present: normal lung sounds bilaterally. Absent: respiratory distress, wheezes, rales, rhonchi, stridor Cardiovascular Exam: Present: regular rate, normal rhythm, normal heart sounds. Absent: systolic murmur, diastolic murmur, rubs, gallop, clicks GI/Abdominal exam: Present: soft, normal bowel sounds. Absent: distended, te nderness, guarding, rebound, rigid Extremities exam: Present: normal inspection, full ROM, normal capillary refill. Absent: tenderness, pedal edema, joint swelling, calf tenderness Back exam: Present: normal inspection Neurological exam: Present: alert, oriented X3, CN II-XII intact Psychiatric exam: Present: normal affect, normal mood Skin exam: Present: warm, dry, intact, normal color. Absent: rash Course Vital Signs 03/24/21 03/24/21 03/24/21 21:23 22:30 23:00 Temperature 103.2 F H 101.2 F H 101.0 F H Pulse Rate 128 H 118 H 102 H Respiratory 22 16 Rate Blood Pressure 117/56 129/81 O2 Sat by Pulse 98 95 94 L Oximetry - Reevaluation(s) Reevaluation #1: 03/25/21 03:49 Medical record is reviewed Reevaluation #2: 03/25/21 03:49 Patient feels much improved here in the ER Reevaluation #3: 03/25/21 03:49 Patient is negative for coronavirus testing but told we will do PCR Medical Decision Making - Medical Decision Making 25 male DF for evaluation of signs and symptoms of coronavirus. Patient feels much better here in the ER, will follow-up with final results PCR for when he can return to work - Lab Data Result diagrams: 03/24/21 22:15 03/24/21 22:15 Lab Results 03/24/21 03/24/21 03/24/21 Range/Units 22:15 22:15 22:15 WBC 12.9 H (3.8-10.6) k/uL RBC 5.22 (4.30-5.90) m/uL Hgb 15.2 (13.0-17.5) gm/dL Hct 43.4 (39.0-53.0) % MCV 83.0 (80.0-100.0) fL MCH 29.0 (25.0-35.0) pg MCHC 35.0 (31.0-37.0) g/dL RDW 13.1 (11.5-15.5) % Plt Count 131 L (150-450) k/uL MPV 6.8 Neutrophils % 92 % Lymphocytes % 4 % Monocytes % 3 % Eosinophils % 0 % Basophils % 0 % Neutrophils # 11.8 H (1.3-7.7) k/uL Lymphocytes # 0.5 L (1.0-4.8) k/uL Monocytes # 0.4 (0-1.0) k/uL Eosinophils # 0.1 (0-0.7) k/uL Basophils # 0.0 (0-0.2) k/uL Sodium 138 (137-145) mmol/L Potassium 4.0 (3.5-5.1) mmol/L Chloride 105 (98-107) mmol/L Carbon Dioxide 24 (22-30) mmol/L Anion Gap 9 mmol/L BUN 14 (9-20) mg/dL Creatinine 0.94 (0.66-1.25) mg/dL Est GFR (CKD-EPI)AfAm >90 (>60 ml/min/1.73 sqM) Est GFR (CKD-EPI)NonAf >90 (>60 ml/min/1.73 sqM) Glucose 113 H (74-99) mg/dL Plasma Lactic Acid Josiah 0.8 (0.7-2.0) mmol/L Calcium 9.5 (8.4-10.2) mg/dL Magnesium 1.6 (1.6-2.3) mg/dL Total Bilirubin 0.5 (0.2-1.3) mg/dL AST 24 (17-59) U/L ALT 17 (4-49) U/L Alkaline Phosphatase 60 (38-126) U/L Lactate Dehydrogenase 338 (313-618) U/L C-Reactive Protein 5.3 H (<1.0) mg/dL Total Protein 7.6 (6.3-8.2) g/dL Albumin 4.8 (3.5-5.0) g/dL Coronavirus (PCR) (Not Detectd) 03/24/21 Range/Units 22:15 WBC (3.8-10.6) k/uL RBC (4.30-5.90) m/uL Hgb (13.0-17.5) gm/dL Hct (39.0-53.0) % MCV (80.0-100.0) fL MCH (25.0-35.0) pg MCHC (31.0-37.0) g/dL RDW (11.5-15.5) % Plt Count (150-450) k/uL MPV Neutrophils % % Lymphocytes % % Monocytes % % Eosinophils % % Basophils % % Neutrophils # (1.3-7.7) k/uL Lymphocytes # (1.0-4.8) k/uL Monocytes # (0-1.0) k/uL Eosinophils # (0-0.7) k/uL Basophils # (0-0.2) k/uL Sodium (137-145) mmol/L Potassium (3.5-5.1) mmol/L Chloride (98-107) mmol/L Carbon Dioxide (22-30) mmol/L Anion Gap mmol/L BUN (9-20) mg/dL Creatinine (0.66-1.25) mg/dL Est GFR (CKD-EPI)AfAm (>60 ml/min/1.73 sqM) Est GFR (CKD-EPI)NonAf (>60 ml/min/1.73 sqM) Glucose (74-99) mg/dL Plasma Lactic Acid Josiah (0.7-2.0) mmol/L Calcium (8.4-10.2) mg/dL Magnesium (1.6-2.3) mg/dL Total Bilirubin (0.2-1.3) mg/dL AST (17-59) U/L ALT (4-49) U/L Alkaline Phosphatase (38-126) U/L Lactate Dehydrogenase (313-618) U/L C-Reactive Protein (<1.0) mg/dL Total Protein (6.3-8.2) g/dL Albumin (3.5-5.0) g/dL Coronavirus (PCR) Not Detected (Not Detectd) - EKG Data -: EKG Interpreted by Me (EKG shows sinus tachycardia 108 TX 12 QRS 84 QTc 385) - Radiology Data Radiology results: report reviewed (Chest x-rays negative for acute disease), image reviewed Disposition Clinical Impression: Dehydration, Fever Disposition: HOME SELF-CARE Condition: Good Instructions (If sedation given, give patient instructions): Fever in Adults (ED) Is patient prescribed a controlled substance at d/c from ED?: No Referrals: Naomi Carmen MD [Primary Care Provider] - 1-2 days
--- NOTE | 2021-03-24 22:00 | XR ---
EXAMINATION TYPE: XR chest 1V portable DATE OF EXAM: 03/24/2021 COMPARISON: June 09, 2020 HISTORY: Pneumonia. TECHNIQUE: Single view FINDINGS: Heart and mediastinum are normal. Lungs are clear. Diaphragm is normal. Bony thorax appears normal. IMPRESSION: Normal chest. No change.
[2021-03-24 22:22] LABS: Basophils % (A) 0 %; Eosinophils # (A) 0.1 k/uL (0-0.7); Eosinophils % (A) 0 %; HCT 43.4 % (39.0-53.0); HGB 15.2 gm/dL (13.0-17.5); Lymphocytes # (A) 0.5 k/uL (1.0-4.8); Lymphocytes % (A) 4 %; Mean Platelet Volume 6.8; Monocytes # (A) 0.4 k/uL (0-1.0); Monocytes % (A) 3 %; Neutrophils # (A) 11.8 k/uL (1.3-7.7); Neutrophils % (A) 92 %; Platelet Count 131 k/uL (150-450); RBC 5.22 m/uL (4.30-5.90); RDW 13.1 % (11.5-15.5); WBC 12.9 k/uL (3.8-10.6)
[2021-03-24 22:38] LABS: ALT 17 U/L (4-49); AST 24 U/L (17-59); African American GFR (CKD) >90 (>60 ml/min/1.73 sqM); Albumin 4.8 g/dL (3.5-5.0); Alkaline Phosphatase 60 U/L (38-126); Anion Gap 9 mmol/L; Blood Urea Nitrogen 14 mg/dL (9-20); C Reactive Protein 5.3 mg/dL (<1.0); Calcium 9.5 mg/dL (8.4-10.2); Carbon Dioxide 24 mmol/L (22-30); Chloride 105 mmol/L (98-107); Glucose 113 mg/dL (74-99); LDH 338 U/L (313-618); Magnesium 1.6 mg/dL (1.6-2.3); Non-African American GFR(CKD) >90 (>60 ml/min/1.73 sqM); Sodium 138 mmol/L (137-145); Total Bilirubin 0.5 mg/dL (0.2-1.3); Total Protein 7.6 g/dL (6.3-8.2)
[2021-03-24] MEDS ORDERED: KETOROLAC 15 MG/ML 1 ML VIAL IVP STA (23:24)
[2021-03-24] MEDS ORDERED: DEXAMETHASONE SOD PHOSPHATE 10 MG/ML 1 ML VIAL IV STA (23:24)
[2021-03-24] MEDS ORDERED: ONDANSETRON 4 MG ODT STARTER PACK 2 TAB BTL PO STA (23:24)
[2021-03-24] MEDS ORDERED: IBUPROFEN 600 MG STARTER PACK 4 TAB BTL PO STA (23:25)
[2021-03-24 23:37] VITALS: BP 129/81; PULSE 102; RESP 16; TEMP 101
== END 2021-03-24 23:47 | disposition home or self-care (01) ==
LOC: EC 20:58
DX: E86.0 Dehydration (principal); R50.9 Fever, unspecified
CPT/HCPCS: 99284; 96374; 96375; 96361; 36415; 93005; 80053; 83605; 83615; 83735; 85025; 86140; 87040; 87635; 71045; U0003; J1100; J2405; S0119

== ENCOUNTER 2021-03-27 17:32 | Emergency (ER) | payer OTHER ==
[2021-03-27 17:44] VITALS: TEMP 98.1
[2021-03-27] MEDS ORDERED: diphenhydrAMINE 50 MG/ML 1 ML VIAL IVP STA (18:54)
[2021-03-27] MEDS ORDERED: METOCLOPRAMIDE 5 MG/ML 2 ML VIAL IVP STA (18:54)
[2021-03-27] MEDS ORDERED: SODIUM CHLORIDE 0.9% 2,000 ML IV ONE (18:55)
--- NOTE | 2021-03-27 19:39 | CT ---
EXAMINATION TYPE: CT abdomen pelvis w con DATE OF EXAM: 03/27/2021 COMPARISON: None HISTORY: Abdominal pain and diarrhea. CT DLP: 1070.7 mGycm Automated exposure control for dose reduction was used. CONTRAST: Performed with IV Contrast, patient injected with 100 mL of Isovue 300. Images obtained from the diaphragm to the floor the pelvis with IV contrast. Lung bases are clear. There is no pleural effusion. Heart size is normal. There is no pericardial eff usion. Liver spleen stomach pancreas gallbladder appear intact. The bile ducts are not dilated. There is no adrenal mass. Kidneys show satisfactory contrast opacification. There is no hydronephrosi s. Ureters are not dilated. Delayed images show normal renal excretion. There is no retroperitoneal a denopathy. Bladder distends smoothly. There is no inguinal hernia. There is no free fluid in the pelv is. There is some wall thickening involving the ascending colon and transverse colon. There is wall thick ening also extending into the descending colon. There is sparing of the sigmoid colon. Small bowel pa ttern appears normal. There is no mesenteric edema. There is no ascites or free air. There is no bowel obstruction. Appendi x is inferior and medial and appears normal. There is small amount of free fluid in the pelvis. The lumbar vertebra have normal alignment. Posteri or elements are intact. Bony pelvis is intact. The hip joints are intact. IMPRESSION: Large bowel wall thickening as above is suggestive of a nonspecific colitis. No bowel obstruction.
[2021-03-27 19:40] LABS: Basophils % (A) 0 %; Eosinophils % (A) 0 %; HCT 43.7 % (39.0-53.0); HGB 14.5 gm/dL (13.0-17.5); Lymphocytes # (A) 1.2 k/uL (1.0-4.8); Lymphocytes % (A) 16 %; MCH 28.7 pg (25.0-35.0); MCHC 33.2 g/dL (31.0-37.0); MCV 86.5 fL (80.0-100.0); Mean Platelet Volume 6.6; Monocytes # (A) 0.5 k/uL (0-1.0); Monocytes % (A) 7 %; Neutrophils # (A) 5.4 k/uL (1.3-7.7); Neutrophils % (A) 73 %; Platelet Count 170 k/uL (150-450); RBC 5.06 m/uL (4.30-5.90); RDW 13.6 % (11.5-15.5); WBC 7.4 k/uL (3.8-10.6)
[2021-03-27 19:43] LABS: ALT 18 U/L (4-49); AST 21 U/L (17-59); African American GFR (CKD) >90 (>60 ml/min/1.73 sqM); Albumin 4.3 g/dL (3.5-5.0); Alkaline Phosphatase 54 U/L (38-126); Anion Gap 8 mmol/L; Blood Urea Nitrogen 9 mg/dL (9-20); Calcium 9.7 mg/dL (8.4-10.2); Carbon Dioxide 30 mmol/L (22-30); Chloride 102 mmol/L (98-107); Glucose 101 mg/dL (74-99); Lipase 144 U/L (23-300); Magnesium 1.9 mg/dL (1.6-2.3); Non-African American GFR(CKD) >90 (>60 ml/min/1.73 sqM); Potassium 4.3 mmol/L (3.5-5.1); Sodium 140 mmol/L (137-145); Total Bilirubin 0.4 mg/dL (0.2-1.3); Total Protein 7.1 g/dL (6.3-8.2)
[2021-03-27] MEDS ORDERED: AMOXIC-POT CLAV 875-125MG 1 EACH TAB PO STA (20:43)
--- NOTE | 2021-03-27 20:45 | ED ---
Nausea/Vomiting/Diarrhea HPI - General Chief complaint: Nausea/Vomiting/Diarrhea Stated complaint: left side abd pain-revisit Time Seen by Provider: 03/27/21 18:23 Source: patient Mode of arrival: ambulatory Limitations: no limitations - History of Present Illness Initial comments: Patient is a 25-year-old male who presents to the emergency department p ersistent diarrhea. Patient was seen a few days ago for similar complaint. He just returned from [place]. States he went out to eat at a [place] restaurant restaurant. Several hours after he ate he began having intractable diarrhea. He has been taking Pepto without improvement in his symptoms. He was seen in the emergency department and hadn't normal labs. Reports that at home he has had continued diarrhea and developed lower abdominal pain. No history of inflammatory bowel disease. No recorded fevers. No nausea or vomiting. Has been able to drink water. No history of C. diff. Has not been on any recent antibiotics. No contacts with similar symptoms. Denies any urinary changes. No other alleviating, precipitating or modifying factors - Related Data Previous Rx's Medication Instructions Recorded Dexamethasone [Decadron] 0.75 mg PO DIRECTED #24 tablet 06/10/20 Clindamycin HCl 300 mg PO Q8HR #21 cap 06/12/20 Famotidine [Pepcid] 20 mg PO BID #30 tablet 06/13/20 predniSONE 10 mg PO DAILY #30 tab 06/13/20 Doxycycline Monohydrate [Monodox] 100 mg PO Q12HR #20 cap 01/29/21 Emtricitabine/Tenofovir (Tdf) 1 tab PO DAILY #28 tab 01/29/21 [Truvada 200 mg-300 mg Tablet] Raltegravir Potassium [Isentress] 400 mg PO Q12H #56 tab 01/29/21 Amoxicillin/Potassium Clav 1 tab PO Q12HR #20 tab 03/27/21 [Augmentin 875-125 Tablet] Allergies Allergy/AdvReac Type Severity Reaction Status Date / Time No Known Allergies Allergy Verified 03/27/21 17:44 Review of Systems ROS Statement: Those systems with pertinent positive or pertinent negative responses have been documented in the HPI. ROS Other: All systems not noted in ROS Statement are negative. Past Medical History Past Medical History: No Reported History Additional Past Medical History / Comment(s): [place] History of Any Multi-Drug Resistant Organisms: None Reported Past Surgical History: No Surgical Hx Reported Past Anesthesia/Blood Transfusion Reactions: No Reported Reaction Past Psychological History: No Psychological Hx Reported Smoking Status: Vaper Past Alcohol Use History: Occasional Past Drug Use History: None Reported General Exam Limitations: no limitations Course Vital Signs 03/27/21 03/27/21 17:39 21:02 Temperature 98.1 F Pulse Rate 94 74 Respiratory 18 16 Rate Blood Pressure 144/80 138/71 O2 Sat by Pulse 100 100 Oximetry Medical Decision Making - Medical Decision Making Upon arrival patient was placed into room 26. There are history and physical exam is performed. IV is established the patient is given 2 L bolus of normal saline. I also gave him Benadryl and Reglan for reported headache. Laboratory studies were conducted. Occult is negative. CT is performed which demonstrates large bowel wall thickening suggestive of nonspecific colitis. The patient has had continued symptoms I did place him on antibiotics. He is given a dose of Augmentin in the emergency room. He'll be charged home on antibiotics. Stool s tudies are pending. She is informed that he'll be called with results. Patient agreed to this. He is given written and verbal discharge instructions and discharged home in stable condition - Lab Data Result diagrams: 03/27/21 19:08 03/27/21 19:08 Lab Results 03/27/21 03/27/21 03/27/21 Range/Units 19:08 19:08 20:50 WBC 7.4 (3.8-10.6) k/uL RBC 5.06 (4.30-5.90) m/uL Hgb 14.5 (13.0-17.5) gm/dL Hct 43.7 (39.0-53.0) % MCV 86.5 (80.0-100.0) fL MCH 28.7 (25.0-35.0) pg MCHC 33.2 (31.0-37.0) g/dL RDW 13.6 (11.5-15.5) % Plt Count 170 (150-450) k/uL MPV 6.6 Neutrophils % 73 % Lymphocytes % 16 % Monocytes % 7 % Eosinophils % 0 % Basophils % 0 % Neutrophils # 5.4 (1.3-7.7) k/uL Lymphocytes # 1.2 (1.0-4.8) k/uL Monocytes # 0.5 (0-1.0) k/uL Eosinophils # 0.0 (0-0.7) k/uL Basophils # 0.0 (0-0.2) k/uL Sodium 140 (137-145) mmol/L Potassium 4.3 (3.5-5.1) mmol/L Chloride 102 (98-107) mmol/L Carbon Dioxide 30 (22-30) mmol/L Anion Gap 8 mmol/L BUN 9 (9-20) mg/dL Creatinine 0.85 (0.66-1.25) mg/dL Est GFR (CKD-EPI)AfAm >90 (>60 ml/min/1.73 sqM) Est GFR (CKD-EPI)NonAf >90 (>60 ml/min/1.73 sqM) Glucose 101 H (74-99) mg/dL Calcium 9.7 (8.4-10.2) mg/dL Magnesium 1.9 (1.6-2.3) mg/dL Total Bilirubin 0.4 (0.2-1.3) mg/dL AST 21 (17-59) U/L ALT 18 (4-49) U/L Alkaline Phosphatase 54 (38-126) U/L Total Protein 7.1 (6.3-8.2) g/dL Albumin 4.3 (3.5-5.0) g/dL Lipase 144 (23-300) U/L Stool Occult Blood Negative (Negative) Disposition Clinical Impression: Dehydration, Acute colitis, Diarrhea Disposition: HOME SELF-CARE Condition: Stable Instructions (If sedation given, give patient instructions): Acute Diarrhea (ED) Additional Instructions: Please take the antibiotics as directed. Follow-up with your doctor within 2-4 days. Return to the emergency room for any new or worsening symptoms Prescriptions: Amoxicillin/Potassium Clav [Augmentin 875-125 Tablet] 1 tab PO Q12HR #20 tab Is patient prescribed a controlled substance at d/c from ED?: No Referrals: Naomi Carmen MD [Primary Care Provider] - 1-2 days Time of Disposition: 20:45
[2021-03-27 21:03] VITALS: BP 138/71; PULSE 74; RESP 16
== END 2021-03-27 21:11 | disposition home or self-care (01) ==
LOC: EC 17:32
DX: K52.9 Noninfective gastroenteritis and colitis, unspecified (principal); E86.0 Dehydration; F17.290 Nicotine dependence, other tobacco product, uncomplicated
CPT/HCPCS: 36415; 80053; 83690; 83735; 85025; 82272; 87324; 87045; 87046; 74177; 99284; 96374; 96375; 96361 ×2; J1200; J2765; Q9967

== ENCOUNTER 2023-01-15 06:11 | Emergency (ER) | payer OTHER ==
--- NOTE | 2023-01-15 06:57 | ED ---
General Adult HPI - General Chief complaint: ENT Stated complaint: Swollen Throat Time Seen by Provider: 01/15/23 06:36 Source: patient, RN notes reviewed Mode of arrival: ambulatory Limitations: no limitations - History of Present Illness Initial comments: Patient is a 27-year-old male presenting to the emergency room with complaints of sore throat, shortness, fevers, generalized malaise along with recently used occurring diarrhea. He reports occasional cough.. At this time he denies any chest pain, abdominal pain, nausea, vomiting, inability to eat and drink, dysuria, hematuria, headache, dizziness or chills. He was here in the emergency room yesterday and workup included soft tissue ultrasound which showed tonsillar with out abscess, strep swab negative and negative heterophile. He reports that he has been having these symptoms ongoing for approximately 3 weeks and is concerned regarding the duration of the symptoms. He states that the symptoms are similar to when he had mono a few years ago but is aware that his mono testing from yesterday was negative. Patient reports that he is concerned regarding his persistent symptoms along with potential exposure to sexually transmitted diseases including gonococcal/chlamydial pharyngitis. He denies any known exposure to sexually transmitted diseases. He does take prophylactic HIV treatment daily for the past year without any known exposure to HIV. He has no other significant past medical history. - Related Data Home Medications Medication Instructions Recorded Confirmed Amoxicillin 500 mg PO BID 01/14/23 01/14/23 Previous Rx's Medication Instructions Recorded Emtricitabine/Tenofovir (Tdf) 1 tab PO DAILY #28 tab 01/29/21 [Truvada 200 mg-300 mg Tablet] Azithromycin [Zithromax] 500 mg PO DAILY #5 tab 01/14/23 Doxycycline [Vibramycin] 100 mg PO BID 7 Days #14 capsule 01/15/23 Allergies Allergy/AdvReac Type Severity Reaction Status Date / Time No Known Allergies Allergy Verified 01/15/23 06:13 Review of Systems ROS Statement: Those systems with pertinent positive or pertinent negative responses have been documented in the HPI. ROS Other: All systems not noted in ROS Statement are negative. Past Medical History Past Medical History: No Reported History Additional Past Medical History / Comment(s): [place] History of Any Multi-Drug Resistant Organisms: None Reported Past Surgical History: No Surgical Hx Reported Past Anesthesia/Blood Transfusion Reactions: No Reported Reaction Past Psychological History: No Psychological Hx Reported Smoking Status: Vaper Past Alcohol Use History: Occasional Past Drug Use History: None Reported General Exam Limitations: no limitations General appearance: alert, in no apparent distress Head exam: Present: atraumatic, normocephalic, normal inspection Eye exam: Present: normal appearance, PERRL, EOMI. Absent: scleral icterus, conjunctival injection, periorbital swelling ENT exam: Present: mucous membranes moist, normal external ear exam Neck exam: Present: normal inspection, full ROM, lymphadenopathy, other (Bilateral tonsillar enlargement without exudate, airway patent) Expanded Neck exam: Present: tenderness Respiratory exam: Present: normal lung sounds bilaterally. Absent: respiratory distress, wheezes, rales, rhonchi, stridor Cardiovascular Exam: Present: regular rate, normal rhythm, normal heart sounds. Absent: systolic murmur, diastolic murmur, rubs, gallop, clicks GI/Abdominal exam: Present: soft, normal bowel sounds. Absent: distended, tenderness, guarding, rebound, rigid Extremities exam: Present: normal inspection. Absent: pedal edema, joint swelling Back exam: Present: normal inspection Neurological exam: Present: alert, oriented X3, CN II-XII intact Psychiatric exam: Present: normal affect, normal mood Skin exam: Present: warm, dry, intact, normal color. Absent: rash Course Vital Signs 01/15/23 01/15/23 06:13 08:20 Temperature 99.4 F 99.3 F Pulse Rate 103 H 89 Respiratory 18 19 Rate Blood Pressure 141/87 132/89 O2 Sat by Pulse 96 100 Oximetry Medical Decision Making - Medical Decision Making Was pt. sent in by a medical professional or institution (, PA, STUD MASTER/MISTRESS, urgent care, hospital, or half-way...) When possible be specific @ -No Did you speak to anyone other than the patient for history (EMS, parent, family, police, friend...)? What history was obtained from this source @ -No Did you review nursing and triage notes (agree or disagree)? Why? @ -I reviewed and agree with nursing and triage notes Were old charts reviewed (outside hosp., previous admission, EMS record, old EKG, old radiological studies, urgent care reports/EKG's, half-way records)? Report findings @ -Yes, I reviewed laboratory studies and soft tissue neck ultrasound completed yesterday 01/14/2023 Differential Diagnosis (chest pain, altered mental status, abdominal pain women, abdominal pain men, vaginal bleeding, weakness, fever, dyspnea, syncope, headache, dizziness, GI bleed, back pain, seizure, CVA, palpatations, mental health, musculoskeletal)? @ -Differential Fever: Pneumonia, viral URI, endocarditis, myocarditis, pericarditis, otitis, sinusitis, peritonsillar Abscess, retropharyngeal Abscess, epiglottitis, peritonitis, appendicitis, [place] cystitis, diverticulitis, hepatitis, colitis, UTI, PID, TOA, pyelonephritis, prostatitis, epididymitis, meningitis, en cephalitis, pulmonary embolism, CVA, thyroid storm, pancreatitis, adrenal crisis, cavernous sinus thrombosis, this is not meant to be an all-inclusive list. EKG interpreted by me (3pts min.). @ -None done X-rays interpreted by me (1pt min.). @ -Chest x-ray: No consolidation, pleural effusion or pneumothorax. CT interpreted by me (1pt min.). @ -None done U/S interpreted by me (1pt. min.). @ -None done What testing was considered but not performed or refused? (CT, X-rays, U/S, labs)? Why? @ -None What meds were considered but not given or refused? Why? @ -None Did you discuss the management of the patient with other professionals (professionals i.e. , PA, STUD MASTER/MISTRESS, lab, RT, psych nurse, social service assistant, char conveyor tender cellar, teacher, security police officer, outpatient case manager)? Give summary @ -No Was smoking cessation discussed for >3mins.? @ -No Was critical care preformed (if so, how long)? @ -No Were there social determinants of health that impacted care today? How? (Homelessness, low income, unemployed, alcoholism, drug addiction, whalen sportation, low edu. Level, literacy, decrease access to med. care, intermediate, rehab)? @ -No Was there de-escalation of care discussed even if they declined (Discuss DNR or withdrawal of care, Hospice)? DNR status @ -No What co-morbidities impacted this encounter? (DM, HTN, Smoking, COPD, CAD, Cancer, CVA, ARF, Chemo, Hep., AIDS, mental health diagnosis, sleep apnea, morbid obesity)? @ -None Was patient admitted / discharged? Hospital course, mention meds given and route, prescriptions, significant lab abnormalities, going to OR and other pertinent info. @ -37-year-old male presenting to the emergency room with continued complaints of sore throat, shortness, fevers, generalized malaise along with recently used occurring diarrhea. Workup yesterday included soft tissue ultrasound which showed tonsillar with out abscess, strep swab negative and negative heterophile. Patient reports that he is concerned regarding his persistent symptoms along with potential exposure to sexually transmitted diseases including gonococcal/chlamydial pharyngitis. He denies any known exposure to sexually transmitted diseases. He does take prophylactic HIV treatment daily for the past year without any known exposure to HIV. Will obtain chest x-ray for shortness of breath, CBC, CMP along with STD testing for hepatitis, HIV, syphilis and throat swab for gonorrhea chlamydia. Laboratory results available at this time include CBC with elevated WBC 15.7, elevated neutrophils 12.8 with remaining differential normal. CMP with elevated glucose at 114 otherwise no other abnormalities. STD testing will not be available for 48-72 hours and confirmed results will be provided to patient's primary care provider. Will treat patient empirically for gonococcal and chlamydial pharyngitis with 1 g of Rocephin now, doxycycline 100 mg twice a day for 7 days. Will give Decadron to help reduce tonsillar swelling and refer to ENT. Findings and recommendations discussed with patient at length. Advised no need to continue Zithromax and to start doxycycline. Patient encouraged to maintain abstinence until results of STD testing and completion of current treatment. Patient advised to follow-up with primary care provider. Return parameters to the emergency room discussed. WIll discharge home in stable condition on oral antibiotic empiric treatment for gonococcal/chlamydial pharyngitis along with follow-up with primary care provider and ENT for tonsillar enlargement. Undiagnosed new problem with uncertain prognosis? @ -Yes, STD testing of hepatitis, HIV, syphilis, gonorrhea and chlamydia are pending. Patient advised to follow-up with primary care provider regarding testing results and treatment if needed. Drug Therapy requiring intensive monitoring for toxicity (Heparin, Nitro, Insulin, Cardizem)? @ -No Were any procedures done? @ -No Diagnosis/symptom? @ -Tonsillar enlargement Acute, or Chronic, or Acute on Chronic? @ -Acute Uncomplicated (without systemic symptoms) or Complicated (systemic symptoms)? @ -Uncomplicated Side effects of treatment? @ -No Exacerbation, Progression, or Severe Exacerbation? @ -No Poses a threat to life or bodily function? How? (Chest pain, USA, MD, pneumonia, PE, COPD, DKA, ARF, appy, cholecystitis, CVA, Diverticulitis, Homicidal, Suicidal, threat to staff... and all critical care pts) @ -No Diagnosis/symptom? @ -Possible exposure to sexually transmitted diseases Acute, or Chronic, or Acute on Chronic? @ -Acute Uncomplicated (without systemic symptoms) or Complicated (systemic symptoms)? @ -Uncomplicated Side effects of treatment? @ -none Exacerbation, Progression, or Severe Exacerbation] @ -no Poses a threat to life or bodily function? @ -no Case discussed with Dr. Jones. - Lab Data Result diagrams: 01/15/23 08:44 01/15/23 08:44 Lab Results 01/15/23 01/15/23 Range/Units 08:44 08:44 WBC 15.7 H (3.8-10.6) k/uL RBC 4.80 (4.30-5.90) m/uL Hgb 13.6 (13.0-17.5) gm/dL Hct 42.0 (39.0-53.0) % MCV 87.5 (80.0-100.0) fL MCH 28.4 (25.0-35.0) pg MCHC 32.4 (31.0-37.0) g/dL RDW 13.5 (11.5-15.5) % Plt Count 176 (150-450) k/uL MPV 6.9 Neutrophils % 82 % Lymphocytes % 10 % Monocytes % 5 % Eosinophils % 1 % Basophils % 0 % Neutrophils # 12.8 H (1.3-7.7) k/uL Lymphocytes # 1.6 (1.0-4.8) k/uL Monocytes # 0.9 (0-1.0) k/uL Eosinophils # 0.1 (0-0.7) k/uL Basophils # 0.0 (0-0.2) k/uL Sodium 140 (137-145) mmol/L Potassium 4.3 (3.5-5.1) mmol/L Chloride 102 (98-107) mmol/L Carbon Dioxide 29 (22-30) mmol/L Anion Gap 9 mmol/L BUN 11 (9-20) mg/dL Creatinine 0.99 (0.66-1.25) mg/dL Est GFR (CKD-EPI)AfAm >90 (>60 ml/min/1.73 sqM) Est GFR (CKD-EPI)NonAf >90 (>60 ml/min/1.73 sqM) Glucose 114 H (74-99) mg/dL Calcium 9.1 (8.4-10.2) mg/dL Total Bilirubin 0.7 (0.2-1.3) mg/dL AST 19 (17-59) U/L ALT 24 (4-49) U/L Alkaline Phosphatase 68 (38-126) U/L Total Protein 7.5 (6.3-8.2) g/dL Albumin 4.3 (3.5-5.0) g/dL - Radiology Data Radiology results: report reviewed, image reviewed Disposition Clinical Impression: Possible exposure to STD, Tonsillar enlargement Disposition: HOME SELF-CARE Condition: Stable Instructions (If sedation given, give patient instructions): Tonsillitis (ED) Additional Instructions: Please complete course of antibiotic as prescribed. It is recommended into your testing is resulted and/or completion of treatment that you should remain abst inent. Please follow-up with your primary care provider in regards to results of STD testing completed today. Please contact ENT for follow-up regarding tonsillar enlargement. Please return to the Emergency Department if symptoms worsen or any other concerns. Prescriptions: Doxycycline [Vibramycin] 100 mg PO BID 7 Days #14 capsule Is patient prescribed a controlled substance at d/c from ED?: No Referrals: Raina Dee PAC [Family Provider] - 1-2 days Venkat Barba MD [STAFF PHYSICIAN] - 1-2 days Time of Disposition: 09:11
--- NOTE | 2023-01-15 07:18 | XR ---
EXAMINATION TYPE: XR chest 2V DATE OF EXAM: 01/15/2023 7:12 AM COMPARISON: Chest radiographs from 03/24/2021 TECHNIQUE: XR chest 2V Frontal and lateral views of the chest. CLINICAL INDICATION:Male, 27 years old with history of shortness of breath; FINDINGS: Lungs/Pleura: There is no evidence of pleural effusion, focal consolidation, or pneumothorax. Pulmonary vascularity: Unremarkable. Heart/mediastinum: Cardiomediastinal silhouette is unremarkable. Musculoskeletal: No acute osseous pathology. IMPRESSION: No acute cardiopulmonary disease/process.
[2023-01-15 08:21] VITALS: RESP 19; TEMP 99.3
[2023-01-15] MEDS ORDERED: cefTRIAXone IN SWFI 1,000 MG/10 ML SYRINGE IVP STA (08:42)
[2023-01-15] MEDS ORDERED: DEXAMETHASONE SOD PHOSPHATE 10 MG/ML 1 ML VIAL IVP STA (08:43)
[2023-01-15 08:51] LABS: Basophils % (A) 0 %; Eosinophils # (A) 0.1 k/uL (0-0.7); Eosinophils % (A) 1 %; HGB 13.6 gm/dL (13.0-17.5); Lymphocytes # (A) 1.6 k/uL (1.0-4.8); Lymphocytes % (A) 10 %; MCH 28.4 pg (25.0-35.0); MCHC 32.4 g/dL (31.0-37.0); MCV 87.5 fL (80.0-100.0); Mean Platelet Volume 6.9; Monocytes # (A) 0.9 k/uL (0-1.0); Monocytes % (A) 5 %; Neutrophils # (A) 12.8 k/uL (1.3-7.7); Neutrophils % (A) 82 %; Platelet Count 176 k/uL (150-450); RDW 13.5 % (11.5-15.5); WBC 15.7 k/uL (3.8-10.6)
[2023-01-15 09:05] LABS: ALT 24 U/L (4-49); AST 19 U/L (17-59); African American GFR (CKD) >90 (>60 ml/min/1.73 sqM); Albumin 4.3 g/dL (3.5-5.0); Alkaline Phosphatase 68 U/L (38-126); Anion Gap 9 mmol/L; Blood Urea Nitrogen 11 mg/dL (9-20); Calcium 9.1 mg/dL (8.4-10.2); Carbon Dioxide 29 mmol/L (22-30); Chloride 102 mmol/L (98-107); Glucose 114 mg/dL (74-99); Non-African American GFR(CKD) >90 (>60 ml/min/1.73 sqM); Potassium 4.3 mmol/L (3.5-5.1); Sodium 140 mmol/L (137-145); Total Bilirubin 0.7 mg/dL (0.2-1.3); Total Protein 7.5 g/dL (6.3-8.2)
[2023-01-15] MEDS ORDERED: ONDANSETRON 4 MG/2 ML VIAL IVP STA (09:06)
[2023-01-15 09:39] VITALS: BP 140/72; PULSE 82
[2023-01-15 11:43] LABS: Hepatitis A Antibody IgM Nonreactive (Nonreactive); Hepatitis B Core IgM Nonreactive (Nonreactive); Hepatitis B Surface Antigen Nonreactive (Nonreactive); Hepatitis C IgG Antibody Nonreactive (Nonreactive)
[2023-01-15 16:34] LABS: HIV 2 AB Non-Reactive (Non-Reactive); HIV AB P24 Non-Reactive (Non-Reactive); HIV P24 AG Non-Reactive (Non-Reactive)
[2023-01-16 13:31] LABS: HIV-1 RNA Not detected (Not detected)
== END 2023-01-15 09:40 | disposition home or self-care (01) ==
LOC: EC 06:11
DX: J35.1 Hypertrophy of tonsils (principal); Z20.2 Contact with and (suspected) exposure to infections with a predominantly sexual mode of transmission; F17.290 Nicotine dependence, other tobacco product, uncomplicated
CPT/HCPCS: 96375 ×3; 96374 ×2; 99283 ×2; 36415; 87535; 86803; 86705; 86709; 80053; 87901; 85025; 87340; 86780; 87390; 71046; J1100; J2405; J0696

== ENCOUNTER 2023-11-16 21:54 | Emergency (ER) | payer OTHER ==
--- NOTE | 2023-11-16 22:36 | ED ---
ENT HPI - General Chief complaint: ENT Stated complaint: throat pain fever Time Seen by Provider: 11/16/23 22:00 Source: patient Mode of arrival: ambulatory Limitations: no limitations - History of Present Illness Initial comments: 27-year-old male presenting with chief complaint of sore throat. Patient states that often when he is ill with a sore throat his tonsils will become quite enlarged and he needs a steroid shot. He was seen at urgent care about 2 weeks ago and diagnosed with influenza and given a steroid shot. About 3 days ago his sore throat started coming back. He states that he is having some difficulty with swallowing. Feels similar to when he had mononucleosis. Admits to fevers and chills. He has been alternating Motrin and Tylenol, last received Tylenol 2 hours ago and Motrin about 4 hours ago. - Related Data Home Medications Medication Instructions Recorded Confirmed Amoxicillin 500 mg PO BID 01/14/23 01/14/23 Previous Rx's Medication Instructions Recorded Emtricitabine/Tenofovir (Tdf) 1 tab PO DAILY #28 tab 01/29/21 [Truvada 200 mg-300 mg Tablet] Azithromycin [Zithromax] 500 mg PO DAILY #5 tab 01/14/23 Doxycycline [Vibramycin] 100 mg PO BID 7 Days #14 capsule 01/15/23 Amoxicillin 500 mg PO Q12HR 10 Days #20 cap 11/17/23 methylPREDNISolone Dose Pack 4 mg PO DIRECTED #1 packet 11/17/23 [Medrol Dose Pack] Allergies Allergy/AdvReac Type Severity Reaction Status Date / Time No Known Allergies Allergy Verified 01/15/23 06:13 Review of Systems ROS Statement: Those systems with pertinent positive or pertinent negative responses have been documented in the HPI. ROS Other: All systems not noted in ROS Statement are negative. Past Medical History Past Medical History: No Reported History Additional Past Medical History / Comment(s): [place] History of Any Multi-Drug Resistant Organisms: None Reported Past Surgical History: No Surgical Hx Reported Past Anesthesia/Blood Transfusion Reactions: No Reported Reaction Past Psychological History: No Psychological Hx Reported Smoking Status: Vaper Past Alcohol Use History: Occasional Past Drug Use History: None Reported General Exam Limitations: no limitations General appearance: alert, in no apparent distress Head exam: Present: atraumatic, normocephalic Eye exam: Present: normal appearance Expanded Mouth exam: Present: normal external inspection, tongue normal. Absent: drooling, trismus, muffled voice Throat exam: tonsillar erythema, tonsillomegaly Neck exam: Present: normal inspection, lymphadenopathy Respiratory exam: Present: normal lung sounds bilaterally. Absent: respiratory distress, wheezes, rales, rhonchi, stridor Cardiovascular Exam: Present: normal rhythm, tachycardia, normal heart sounds. Absent: systolic murmur, diastolic murmur, rubs, gallop, clicks Neurological exam: Present: alert, oriented X3 Psychiatric exam: Present: normal affect, normal mood Skin exam: Present: warm, dry Course Vital Signs 11/16/23 11/16/23 21:55 23:30 Temperature 102.8 F H Pulse Rate 125 H 115 H Respiratory 20 22 Rate Blood Pressure 126/71 122/76 O2 Sat by Pulse 95 97 Oximetry Medical Decision Making - Medical Decision Making Was pt. sent in by a medical professional or institution (, PA, TECHNICAL SALES SUPPORT MANAGER, urgent care, hospital, or [facility]...) When possible be specific @ -No Did you speak to anyone other than the patient for history (EMS, parent, family, police, friend...)? What history was obtained from this source @ -No Did you review nursing and triage notes (agree or disagree)? Why? @ -I reviewed and agree with nursing and triage notes Were old charts reviewed (outside hosp., previous admission, EMS record, old EKG, old radiological studies, urgent care reports/EKG's, [facility] records)? Report findings @ -No old charts were reviewed Differential Diagnosis (chest pain, altered mental status, abdominal pain women, abdominal pain men, vaginal bleeding, weakness, fever, dyspnea, syncope, headache, dizziness, GI bleed, back pain, seizure, CVA, palpatations, mental health, musculoskeletal)? @ -Differential includes strep pharyngitis, viral pharyngitis, mononucleosis, this is not an all-inclusive list EKG interpreted by me (3pts min.). @ -As above X-rays interpreted by me (1pt min.). @ -None done CT interpreted by me (1pt min.). @ -None done U/S interpreted by me (1pt. min.). @ -None done What testing was considered but not performed or refused? (CT, X-rays, U/S, labs)? Why? @ -None What meds were considered but not given or refused? Why? @ -None Did you discuss the management of the patient with other professionals (professionals i.e. , PA, TECHNICAL SALES SUPPORT MANAGER, lab, RT, psych nurse, criminal justice social worker, electronic wirer, teacher, business enterprise officer, ed case manager)? Give summary @ -No Was smoking cessation discussed for >3mins.? @ -No Was critical care preformed (if so, how long)? @ -No Were there social determinants of health that impacted care today? How? (Homele ssness, low income, unemployed, alcoholism, drug addiction, transportation, low edu. Level, literacy, decrease access to med. care, custodial, rehab)? @ -No Was there de-escalation of care discussed even if they declined (Discuss DNR or withdrawal of care, Hospice)? DNR status @ -No What co-morbidities impacted this encounter? (DM, HTN, Smoking, COPD, CAD, Cancer, CVA, ARF, Chemo, Hep., AIDS, mental health diagnosis, sleep apnea, morbid obesity)? @ -None Was patient admitted / discharged? Hospital course, mention meds given and route, prescriptions, significant lab abnormalities, going to OR and other pertinent info. @ -27-year-old male presenting with chief complaint of sore throat. On exam he has bilaterally enlarged tonsils. He is given ibuprofen and Decadron. He is positive for group A strep. Negative heterophile. Negative for influenza, RSV, and COVID. Patient will be treated with amoxicillin twice daily x 10 days. He is educated on today's findings and supportive management at home. Discharged home. Follow-up with PCP. Report back to ER with any new or worsening symptoms. Discussed return parameters and answered all questions. Patient conveyed verbal understanding and agreed to the plan. I discussed this case in detail with my attending Dr. Jones Undiagnosed new problem with uncertain prognosis? @ -No Drug Therapy requiring intensive monitoring for toxicity (Heparin, Nitro, Insulin, Cardizem)? @ -No Were any procedures done? @ -No Diagnosis/symptom? @ -Streptococcal tonsillitis Acute, or Chronic, or Acute on Chronic? @ -Acute Uncomplicated (without systemic symptoms) or Complicated (systemic symptoms)? @ -Complicated Side effects of treatment? @ -No Exacerbation, Progression, or Severe Exacerbation? @ -No Poses a threat to life or bodily function? How? (Chest pain, USA, PA, pneumonia, PE, COPD, DKA, ARF, appy, cholecystitis, CVA, Diverticulitis, Homicidal, Suicidal, threat to staff... and all critical care pts) @ -Unlikely - Lab Data Lab Results 11/16/23 11/16/23 11/16/23 Range/Units 22:39 22:39 22:39 Heterophile Antibody Negative (Negative) Influenza Type A (PCR) Not Detected (Not Detectd) Influenza Type B (PCR) Not Detected (Not Detectd) RSV (PCR) Not Detected (Not Detectd) SARS-CoV-2 (PCR) Not Detected (Not Detectd) Group A Strep (PCR) DETECTED A (Not Detectd) Disposition Clinical Impression: Strep tonsillitis Disposition: HOME SELF-CARE Condition: Good Instructions (If sedation given, give patient instructions): Strep Throat in Children (ED) Additional Instructions: Follow-up with PCP. Report back to ER with any new or worsening symptoms. Take medication as prescribed. Alternate Motrin and Tylenol as needed for fever and pain control. Prescriptions: Amoxicillin 500 mg PO Q12HR 10 Days #20 cap methylPREDNISolone Dose Pack [Medrol Dose Pack] 4 mg PO DIRECTED #1 packet Is patient prescribed a controlled substance at d/c from ED?: No Referrals: Brooke Ornelas DO [Primary Care Provider] - 1-2 days Time of Disposition: 00:17
[2023-11-16] MEDS: IBUPROFEN 800 MG TAB PO STA (22:40)
[2023-11-16] MEDS: DEXAMETHASONE SOD PHOSPHATE 10 MG/ML 1 ML VIAL IM STA (22:51)
[2023-11-17] MEDS ORDERED: AMOXICILLIN 500 MG CAP PO STA (00:15)
[2023-11-17 02:07] VITALS: BP 118/78; PULSE 98; RESP 18; TEMP 100.2
== END 2023-11-17 01:34 | disposition home or self-care (01) ==
LOC: EC 21:54
DX: J03.00 Acute streptococcal tonsillitis, unspecified (principal); B95.0 Streptococcus, group A, as the cause of diseases classified elsewhere; F17.290 Nicotine dependence, other tobacco product, uncomplicated; Z20.822 Contact with and (suspected) exposure to COVID-19
CPT/HCPCS: 36415; 87651; 86308; 87070; 87636; 99283; 96372; J1100

== ENCOUNTER 2024-07-26 13:15 | Emergency (ER) | payer BC, OTHER ==
--- NOTE | 2024-07-26 13:43 | ED ---
Back Pain HPI - General Chief Complaint: Back Pain/Injury Stated Complaint: Back pain Time Seen by Provider: 07/26/24 13:32 Source: patient, EMS, RN notes reviewed - History of Present Illness Initial Comments: 28-year-old male with no significant past medical history presented to emergency department via EMS for chief complaint of lumbar back pain. Patient was in his bedroom picking up a backpack when he had a sharp stabbing sensation to his lumbar spine that radiate into bilateral lower legs. Is following at the time of this event. He denies loss of bladder or bowel continence or saddle anesthesias, fevers, history of IV drug use. He denies previous surgeries of his lumbar spine. Was given fentanyl en route and states that this has markedly helped his symptoms - Related Data Home Medications Medication Instructions Recorded Confirmed Amoxicillin 500 mg PO BID 01/14/23 01/14/23 Previous Rx's Medication Instructions Recorded Emtricitabine/Tenofovir (Tdf) 1 tab PO DAILY #28 tab 01/29/21 [Truvada 200 mg-300 mg Tablet] Azithromycin [Zithromax] 500 mg PO DAILY #5 tab 01/14/23 Doxycycline [Vibramycin] 100 mg PO BID 7 Days #14 capsule 01/15/23 Amoxicillin 500 mg PO Q12HR 10 Days #20 cap 11/17/23 methylPREDNISolone Dose Pack 4 mg PO DIRECTED #1 packet 11/17/23 [Medrol Dose Pack] Ketorolac [Toradol] 10 mg PO Q8HR #15 tab 07/26/24 Lidocaine 5% Patch [Lidoderm] 1 patch TOPICAL DAILY #12 patch 07/26/24 Allergies Allergy/AdvReac Type Severity Reaction Status Date / Time No Known Allergies Allergy Verified 07/26/24 13:30 Review of Systems ROS Statement: Those systems with pertinent positive or pertinent negative responses have been documented in the HPI. ROS Other: All systems not noted in ROS Statement are negative. Past Medical History Past Medical History: No Reported History Additional Past Medical History / Comment(s): [place] History of Any Multi-Drug Resistant Organisms: None Reported Past Surgical History: No Surgical Hx Reported Past Anesthesia/Blood Transfusion Reactions: No Reported Reaction Past Psychological History: No Psychological Hx Reported Smoking Status: Vaper Past Alcohol Use History: Occasional Past Drug Use History: None Reported General Exam General appearance: alert, in no apparent distress Eye exam: Present: normal appearance, PERRL, EOMI. Absent: scleral icterus, conjunctival injection, periorbital swelling ENT exam: Present: normal exam, mucous membranes moist Neck exam: Present: normal inspection. Absent: tenderness, meningismus, lymphadenopathy Respiratory exam: Present: normal lung sounds bilaterally. Absent: respiratory distress, wheezes, rales, rhonchi, stridor Cardiovascular Exam: Present: regular rate, normal rhythm, normal heart sounds. Absent: systolic murmur, diastolic murmur, rubs, gallop, clicks GI/Abdominal exam: Present: soft, normal bowel sounds. Absent: distended, tenderness, guarding, rebound, rigid Extremities exam: Present: normal inspection, full ROM, normal capillary refill. Absent: tenderness, pedal edema, joint swelling, calf tenderness Back exam: Present: normal inspection, tenderness (lumbar spine with ROM and pa lpation), muscle spasm, other (+ straight leg test, bilateral). Absent: full ROM Neurological exam: Present: alert, oriented X3, CN II-XII intact Skin exam: Present: warm, dry, intact, normal color. Absent: rash Course Vital Signs 07/26/24 07/26/24 07/26/24 13:25 14:16 15:39 Temperature 98.3 F 97.9 F Pulse Rate 88 86 82 Respiratory 16 18 18 Rate Blood Pressure 169/85 159/92 136/73 O2 Sat by Pulse 99 99 Oximetry Medical Decision Making - Medical Decision Making Was pt. sent in by a medical professional or institution (, [facility], METAL SMELTER, urgent care, hospital, or correction...) When possible be specific @ -No Did you speak to anyone other than the patient for history (EMS, parent, family, police, friend...)? What history was obtained from this source @ -No Did you review nursing and triage notes (agree or disagree)? Why? @ -I reviewed and agree with nursing and triage notes Were old charts reviewed (outside hosp., previous admission, EMS record, old EKG, old radiological studies, urgent care reports/EKG's, correction records)? Report findings @ -No old charts were reviewed Differential Diagnosis (chest pain, altered mental status, abdominal pain women, abdominal pain men, vaginal bleeding, weakness, fever, dyspnea, syncope, headache, dizziness, GI bleed, back pain, seizure, CVA, palpatations, mental health, musculoskeletal)? @ -Differential Back Pain: Strain, zoster, cauda equina syndrome, epidural abscess, vertebral osteomyelitis, discitis, fracture, subluxation, disc herniation, DJD, spinal stenosis, dissection, AAA, pancreatitis, peptic ulcer disease, pyelonephritis, kidney stone, this is not meant to be an all-inclusive list. EKG interpreted by me (3pts min.). @ -None X-rays interpreted by me (1pt min.). @ -XR of the lumbar spine no acute process CT interpreted by me (1pt min.). @ -None done U/S interpreted by me (1pt. min.). @ -None done What testing was considered but not performed or refused? (CT, X-rays, U/S, labs)? Why? @ -None What meds were considered but not given or refused? Why? @ -None Did you discuss the management of the patient with other professionals (professionals i.e. , PA, METAL SMELTER, lab, RT, psych nurse, social media content specialist, wine specialist, teacher, u.s. revenue officer, caser shoe parts)? Give summary @ -No Was smoking cessation discussed for >3mins.? @ -No Was critical care preformed (if so, how long)? @ -No Were there social determinants of health that impacted care today? How? (H omelessness, low income, unemployed, alcoholism, drug addiction, transportation, low edu. Level, literacy, decrease access to med. care, senior care, rehab)? @ -No Was there de-escalation of care discussed even if they declined (Discuss DNR or withdrawal of care, Hospice)? DNR status @ -No What co-morbidities impacted this encounter? (DM, HTN, Smoking, COPD, CAD, Cancer, CVA, ARF, Chemo, Hep., AIDS, mental health diagnosis, sleep apnea, morbid obesity)? @ -None Was patient admitted / discharged? Hospital course, mention meds given and route, prescriptions, significant lab abnormalities, going to OR and other pertinent info. @ -Discharge. 28-year-old male with lumbar back pain. On my evaluation patient is noted to have pain to his lumbar spine exacerbated with range of motion and on palpation. There are no overlying skin changes. Patient is not exhibiting red flag symptoms concerning for cauda equina including loss of bladder or bowel continence, saddle anesthesias. Patient does not have a history of IV drug use. Patient has a positive straight leg test bilaterally. He is neurovascularly intact of bilateral lower extremities. Patient provided with dose of muscle relaxer. X-ray negative for acute process. Patient is also provided with dose of Toradol and states that this has aided in relief of his symptoms. Patient symptoms are likely secondary to muscle strain and he sent a prescription for Lidoderm patches and Flexeril to take as needed. Recommend he continue range of motion exercises and use Tylenol/Motrin as needed for pain relief. All questions answered at bedside and strict return parameters have discussed with the patient he is verbalized understanding. Discussed with Undiagnosed new problem with uncertain prognosis? @ -No Drug Therapy requiring intensive monitoring for toxicity (Heparin, Nitro, Insulin, Cardizem)? @ -No Were any procedures done? @ -No Diagnosis/symptom? @ -lumbar back strain Acute, or Chronic, or Acute on Chronic? @ -acute Uncomplicated (without systemic symptoms) or Complicated (systemic symptoms)? @ -uncomplicated Side effects of treatment? @ -No Exacerbation, Progression, or Severe Exacerbation? @ -No Poses a threat to life or bodily function? How? (Chest pain, [place], [place], pneumonia, PE, COPD, DKA, ARF, appy, cholecystitis, CVA, Diverticulitis, Homicidal, Suicidal, threat to staff... and all critical care pts) @ -No Disposition Clinical Impression: Low back strain Disposition: HOME SELF-CARE Condition: Good Instructions (If sedation given, give patient instructions): Acute Low Back Pain (ED) Additional Instructions: Please return to the Emergency Department if symptoms worsen or any other concerns. Take prescribed Toradol, flexeril, and lidocaine patches as needed. Continue to supplement Tylenol as needed in addition to Motrin. Do not take Motrin with Toradol. continue with gentle stretching as well. Prescriptions: Lidocaine 5% Patch [Lidoderm] 1 patch TOPICAL DAILY #12 patch Ketorolac [Toradol] 10 mg PO Q8HR #15 tab Is patient prescribed a controlled substance at d/c from ED?: No Referrals: Brooke Ornelas DO [Primary Care Provider] - 1-2 days Time of Disposition: 15:09
[2024-07-26] MEDS: ORPHENADRINE 30 MG/ML 2 ML VIAL IM STA (14:10)
[2024-07-26] MEDS: ORPHENADRINE 30 MG/ML 2 ML VIAL IVP STA (14:12)
--- NOTE | 2024-07-26 14:16 | XR ---
EXAMINATION TYPE: XR lumbar spine 2 or 3V DATE OF EXAM: 07/26/2024 2:03 PM COMPARISON: None CLINICAL INDICATION: Male, 28 years old with history of pain, parasthesias, injury; [facility] TECHNIQUE: XR lumbar spine 2 or 3V - Frontal, lateral and coned in L5-S1 lateral views of the spine. FINDINGS: No evidence of any acute osseous pathology. No evidence of loss of vertebral body height i s seen. There is normal alignment of the lumbar vertebral bodies. No significant degeneration changes throughout the spine. IMPRESSION: No acute fracture. [facility], , 07/26/2024 2:14 PM
[2024-07-26 14:18] VITALS: RESP 18
[2024-07-26] MEDS: KETOROLAC 15 MG/ML 1 ML VIAL IVP STA (14:25)
[2024-07-26] MEDS: LIDOCAINE 4% PATCH TOPICAL ONE (15:21)
[2024-07-26 15:40] VITALS: BP 136/73; PULSE 82; TEMP 97.9
== END 2024-07-26 15:39 | disposition home or self-care (01) ==
LOC: EC 13:15
DX: S39.012A Strain of muscle, fascia and tendon of lower back, initial encounter (principal); F17.290 Nicotine dependence, other tobacco product, uncomplicated; X58.XXXA Exposure to other specified factors, initial encounter
CPT/HCPCS: 72100; 99284; 96374; 96372; J2360; J1885

== ENCOUNTER 2024-11-02 19:55 | Emergency (ER) | payer BC, OTHER ==
--- NOTE | 2024-11-02 22:17 | ED ---
Fever HPI - General Chief Complaint: Fever Stated Complaint: Heart Palp,Dizziness Time Seen by Provider: 11/02/24 21:54 Source: patient Mode of arrival: wheelchair Limitations: no limitations - History of Present Illness Initial Comments: This patient is a 28-year-old man who presents to have evaluation for constellation of symptoms that had come on tonight after he took first dose of antibiotics for recent diagnosis of strep. The patient noticed that he was having fever, that his heart was racing, and that it felt like he was having hard time catching his breath. After period time he was feeling lightheaded and decided to come here for evaluation. Complaint: fever, other -: hour(s) Temperature Source: subjective Context: recent antibiotic use Associated Symptoms: headache, sore throat, shortness of breath Treatments Prior to Arrival: antibiotics - Related Data Home Medications Medication Instructions Recorded Confirmed Amoxicillin 500 mg PO BID 01/14/23 01/14/23 Previous Rx's Medication Instructions Recorded Emtricitabine/Tenofovir (Tdf) 1 tab PO DAILY #28 tab 01/29/21 [Truvada 200 mg-300 mg Tablet] Azithromycin [Zithromax] 500 mg PO DAILY #5 tab 01/14/23 Doxycycline [Vibramycin] 100 mg PO BID 7 Days #14 capsule 01/15/23 Amoxicillin 500 mg PO Q12HR 10 Days #20 cap 11/17/23 methylPREDNISolone Dose Pack 4 mg PO DIRECTED #1 packet 11/17/23 [Medrol Dose Pack] Ketorolac [Toradol] 10 mg PO Q8HR #15 tab 07/26/24 Lidocaine 5% Patch [Lidoderm] 1 patch TOPICAL DAILY #12 patch 07/26/24 Allergies Allergy/AdvReac Type Severity Reaction Status Date / Time No Known Allergies Allergy Verified 11/02/24 20:02 Review of Systems ROS Statement: Those systems with pertinent positive or pertinent negative responses have been documented in the HPI. ROS Other: All systems not noted in ROS Statement are negative. Constitutional: Reports: fever Eyes: Denies: vision change Respiratory: Reports: dyspnea. Denies: cough, wheezes, hemoptysis Cardiovascular: Reports: chest pain, palpitations. Denies: orthopnea, edema, syncope Gastrointestinal: Denies: abdominal pain, nausea, vomiting, diarrhea Genitourinary: Denies: dysuria, hematuria Musculoskeletal: Denies: back pain Skin: Denies: rash Neurological: Reports: headache. Denies: weakness, numbness Psychiatric: Reports: anxiety Past Medical History Past Medical History: No Reported History Additional Past Medical History / Comment(s): [place] History of Any Multi-Drug Resistant Organisms: None Reported Past Surgical History: No Surgical Hx Reported Past Anesthesia/Blood Transfusion Reactions: No Reported Reaction Past Psychological History: No Psychological Hx Reported Smoking Status: Vaper Past Alcohol Use History: Occasional Past Drug Use History: None Reported General Exam Limitations: no limitations General appearance: alert, in no apparent distress, anxious Head exam: Present: atraumatic, normocephalic Eye exam: Present: normal appearance. Absent: scleral icterus, conjunctival injection ENT exam: Present: mucous membranes moist, other (Pharynx injected) Neck exam: Present: normal inspection, tenderness, full ROM, lymphadenopathy. Absent: meningismus Respiratory exam: Present: normal lung sounds bilaterally. Absent: respiratory distress, wheezes, rales, rhonchi, stridor, accessory muscle use Cardiovascular Exam: Present: normal rhythm, tachycardia (Heart rate is 116 at my exam), normal heart sounds. Absent: systolic murmur, diastolic murmur, rubs, gallop GI/Abdominal exam: Present: soft. Absent: distended, tenderness, guarding, rebound, rigid, mass, pulsatile mass, hernia Extremities exam: Present: normal inspection, normal capillary refill. Absent: pedal edema, calf tenderness Back exam: Present: normal inspection. Absent: CVA tenderness (R), CVA tenderness (L) Neurological exam: Present: alert, oriented X3 Skin exam: Present: warm, dry, intact, normal color. Absent: rash Course Vital Signs 11/02/24 11/02/24 11/03/24 19:59 23:27 00:58 Temperature 101.3 F H 101.9 F H 99.7 F H Pulse Rate 152 H 117 H 115 H Respiratory 20 18 18 Rate Blood Pressure 127/78 121/60 120/74 O2 Sat by Pulse 99 97 97 Oximetry 11/03/24 01:59 Temperature 99.4 F Pulse Rate 102 H Respiratory 18 Rate Blood Pressure 119/74 O2 Sat by Pulse 95 Oximetry Medical Decision Making - Medical Decision Making Patient is a 28-year-old man with recent diagnosis of strep, here for constellation of symptoms that came on about the time he took his first dose of antibiotics. The patient does appear to to be tachycardic probably due to fever and otherwise looks well though possibly mildly dehydrated. The patient is given fluids, antipyretic, and steroid for the pharyngeal discomfort. On reevaluation, the patient's heart rate is normal, he is feeling much better and would like to go home. Discussed appropriate further care and follow-up as well as return parameters Was pt. sent in by a medical professional or institution (, PA, CLINICAL ENGINEERING MANAGER, urgent care, hospital, or fci...) When possible be specific @ -[No] Did you speak to anyone other than the patient for history (EMS, parent, family, police, friend...)? What history was obtained from this source @ -[No] Did you review nursing and triage notes (agree or disagree)? Why? @ -[I reviewed and agree with nursing and triage notes] Were old charts reviewed (outside hosp., previous admission, EMS record, old EKG, old radiological studies, urgent care reports/EKG's, fci records)? Report findings @ -[No old charts were reviewed] Differential Diagnosis (chest pain, altered mental status, abdominal pain women, abdominal pain men, vaginal bleeding, weakness, fever, dyspnea, syncope, headache, dizziness, GI bleed, back pain, seizure, CVA, palpatations, mental health, musculoskeletal)? @ -[Differential Fever: Pneumonia, viral URI, endocarditis, myocarditis, pericarditis, otitis, sinusitis, peritonsillar Abscess, retropharyngeal Abscess, epiglottitis, peritonitis, appendicitis, [place] cystitis, diverticulitis, hepatitis, colitis, UTI, PID, TOA, pyelonephritis, prostatitis, epididymitis, meningitis, encephalitis, pulmonary embolism, CVA, thyroid storm, pancreatitis, adrenal crisis, cavernous sinus thrombosis, this is not meant to be an all-inclusive list. Differential Palpitations Ventricular arrhythmias, atrial arrhythmias, myocardial infarction, anemia, thyrotoxicosis, electrolyte imbalance, hypokalemia, pulmonary embolism, pulmonary disease, drugs, alcohol, anxiety, stress.... This is not meant to be an all-inclusive list. EKG interpreted by me (3pts min.). @ -[I interpreted as above] X-rays interpreted by me (1pt min.). @ -[None done] CT interpreted by me (1pt min.). @ -[None done] U/S interpreted by me (1pt. min.). @ -[None done] What testing was considered but not performed or refused? (CT, X-rays, U/S, labs)? Why? @ -[None] What meds were considered but not given or refused? Why? @ -[None] Did you discuss the management of the patient with other professionals (professionals i.e. , PA, CLINICAL ENGINEERING MANAGER, lab, RT, psych nurse, social worker clinical, hands hanger, teacher, global chief creative officer, case resolution specialist)? Give summary @ -[No] Was smoking cessation discussed for >3mins.? @ -[No] Was critical care preformed (if so, how long)? @ -[No] Were there social determinants of health that impacted care today? How? (Homelessness, low income, unemployed, alcoholism, drug addiction, transportation, low edu. Level, literacy, decrease access to med. care, nursing home, rehab)? @ -[No] Was there de-escalation of care discussed even if they declined (Discuss DNR or withdrawal of care, Hospice)? DNR status @ -[No] What co-morbidities impacted this encounter? (DM, HTN, Smoking, COPD, CAD, Cancer, CVA, ARF, Chemo, Hep., AIDS, mental health diagnosis, sleep apnea, morbid obesity)? @ -[None] Was patient admitted / discharged? Hospital course, mention meds given and route, prescriptions, significant lab abnormalities, going to OR and other pertinent info. @ -[See above Undiagnosed new problem with uncertain prognosis? @ -[No] Drug Therapy requiring intensive monitoring for toxicity (Heparin, Nitro, Insulin, Cardizem)? @ -[No] Were any procedures done? @ -[No] Diagnosis/symptom? @ -Acute strep pharyngitis Acute, or Chronic, or Acute on Chronic? @ -[Acute Uncomplicated (without systemic symptoms) or Complicated (systemic symptoms)? @ -[Complicated by fever and tachycardia Side effects of treatment? @ -[No] Exacerbation, Progression, or Severe Exacerbation? @ -[No] Poses a threat to life or bodily function? How? (Chest pain, [place], [place], pneumonia, PE, COPD, DKA, ARF, appy, cholecystitis, CVA, Diverticulitis, Homicidal, Suicidal, threat to staff... and all critical care pts) @ -[No] All treatments are based on ideal body weight as in ED triage - Lab Data Lab Results 11/02/24 11/02/24 Range/Units 22:41 22:41 Influenza Type A (PCR) Not Detected (Not Detectd) Influenza Type B (PCR) Not Detected (Not Detectd) RSV (PCR) Not Detected (Not Detectd) SARS-CoV-2 (PCR) Not Detected (Not Detectd) Group A Strep (PCR) DETECTED A (Not Detectd) - EKG Data -: EKG Interpreted by Pa EKG shows normal: sinus rhythm, axis, intervals (Normal), QRS complexes ( normal) Rate: tachycardia (Rate 148 bpm) Interpretation: nonspecific ST-T wave changes Disposition Clinical Impression: Strep pharyngitis, Tachycardia Disposition: HOME SELF-CARE Condition: Good Instructions (If sedation given, give patient instructions): Pharyngitis (ED), Fever in Adults (ED) Is patient prescribed a controlled substance at d/c from ED?: No Referrals: Brooke Ornelas DO [Primary Care Provider] - 1-2 days
[2024-11-02] MEDS: SODIUM CHLORIDE 0.9% 1,000 ML IV ONE (22:33)
[2024-11-02] MEDS: ONDANSETRON 4 MG/2 ML VIAL IVP STA (22:34)
[2024-11-02] MEDS: ACETAMINOPHEN TAB 325 MG TAB PO STA (22:36)
[2024-11-02 23:22] LABS: Influenza A Not Detected (Not Detectd); Influenza B Not Detected (Not Detectd); RSV Not Detected (Not Detectd)
[2024-11-02 23:28] VITALS: RESP 18
[2024-11-03] MEDS: IBUPROFEN 400 MG TAB PO STA (00:05)
[2024-11-03] MEDS: methylPREDNISolone SOD SUCCI 125 MG/2 ML VIAL IV STA (00:07)
[2024-11-03 02:00] VITALS: BP 119/74; PULSE 102; TEMP 99.4
== END 2024-11-03 02:00 | disposition home or self-care (01) ==
LOC: EC 19:55
DX: J02.0 Streptococcal pharyngitis (principal); B95.0 Streptococcus, group A, as the cause of diseases classified elsewhere; F17.290 Nicotine dependence, other tobacco product, uncomplicated
CPT/HCPCS: 93005; 87651; 87636; 99284; 96374; 96361; 96375; J2405; J2919

== ENCOUNTER 2025-02-18 08:36 | Day surgery (SDC) | payer BC, OTHER ==
--- NOTE | 2025-02-17 19:26 | HP ---
HISTORY AND PHYSICAL CHIEF COMPLAINT: Recurrent streptococcal tonsillitis. HISTORY OF PRESENT ILLNESS: The patient is a pleasant 29-year-old male, who was recently seen in my office for evaluation of recurrent episodes of streptococcal tonsillitis. The patient states that he has strep throat approximately 4 or 5 times a year. He is treated with oral antibiotics and sometimes with steroids. However, despite this treatment the infections keep coming back. This has been going on for several years. At the time that he was seen in my office, clinical examination of the oropharynx revealed 4+ cryptic tonsils filled with white cheesy debris. It was recommended that the patient undergo a tonsillectomy under general anesthesia. PAST MEDICAL HISTORY: Reveals the patient has no known allergies to medications. MEDICATIONS: He is not currently on any medications. PAST SURGICAL HISTORY: He has not had any previous surgeries. REVIEW OF SYSTEMS: Noncontributory. PHYSICAL EXAMINATION: GENERAL: This patient is a 29-year-old male, who is alert and cooperative. HEENT: The patient is normocephalic. Tympanic membranes are normal. Middle ear spaces are free of any fluid or infection. Pupils are equal, round, and reactive to light and accommodation. Extraocular movements are within normal limits. Intranasal examination reveals moderate septal deviation with compensatory hypertrophy of the inferior turbinates. Examination of oropharynx reveals 4+ cryptic tonsils filled with white cheesy debris. The remainder of the head and neck exam are within normal limits. CHEST/CARDIOVASCULAR: Both lung briceno are clear to percussion and auscultation. The patient is in regular sinus rhythm. ABDOMEN: There is no evidence of any masses, megaly, or tenderness. The abdomen is soft. SKIN: Unremarkable. MUSCULOSKELETAL AND NEUROLOGICAL: Within normal limits. RECTAL: Deferred at this time. The remainder of the physical exam is unremarkable. IMPRESSION: Chronic streptococcal tonsillitis. PLAN: The patient is scheduled to undergo a tonsillectomy under general anesthesia in a.m. Attention, RNs in the pre-surgical area, I have ordered for this patient to receive 2 g of Ancef IV to be given once an intravenous line has been established. If the pharmacy department sends a different pre-surgical prophylactic antibiotic to the pre-surgical area, that order should be cancelled and the medication should be returned to the pharmacy department. Please make sure that the patient's account is credited appropriately. Also, I have ordered for this patient to receive 1000 mg of Ofirmev IV to be given once an intravenous line has been established. I have discussed the risks, benefits and alternative therapies for the above-mentioned procedure and for both sedation/analgesia as well as necessary blood product administration, if indicated, as they pertain to this patient. The patient has indicated his understanding and acceptance of the risks and procedures discussed. NICOLAS / CRISTEL: [id number] /
[~2025-02-18 08:36] MED LIST: LIDOCAINE 1% (10MG/ML) FOR IV START INTRADERMA PRN; MIDAZOLAM 2 MG/2 ML VIAL IV PRN; fentaNYL (PF) 50 MCG/ML 2 ML AMP IVP PRN
[2025-02-18] MEDS: IV FLUID CONTINUATION 1,000 ML IV ONE ×2 (09:08→12:51)
[2025-02-18] MEDS: LACTATED RINGERS 1,000 ML IV SCH (09:19)
[2025-02-18] MEDS: ONDANSETRON 4 MG/2 ML VIAL IVP ONE (09:20)
[2025-02-18] MEDS: ACETAMINOPHEN IV (For NPO) 1,000 MG in EMPTY BAG 1 BAG IVPB ONE (09:20)
[2025-02-18] MEDS: DEXAMETHASONE SOD PHOSPHATE 4 MG/ML 1 ML VIAL IV ONE (09:20)
[2025-02-18] MEDS ORDERED: PROPOFOL 10 MG/ML 20 ML VIAL IV ONE (10:04)
[2025-02-18] MEDS ORDERED: MIDAZOLAM 2 MG/2 ML VIAL ONE (10:04)
[2025-02-18] MEDS ORDERED: GLYCOPYRROLATE 0.2 MG/ML 2 ML VIAL ONE (10:04)
[2025-02-18] MEDS ORDERED: fentaNYL (PF) 50 MCG/ML 2 ML AMP ONE (10:04)
[2025-02-18] MEDS ORDERED: DEXAMETHASONE SOD PHOSPHATE 10 MG/ML 1 ML VIAL ONE (10:04)
[2025-02-18] MEDS ORDERED: LIDOCAINE 1% INJ 10MG/ML (20 ML MDV) ONE (10:04)
[2025-02-18] MEDS ORDERED: SUCCINYLCHOLINE CHLORIDE 200 MG/10 ML VIAL IV ONE (10:04)
[2025-02-18] MEDS: ceFAZolin 2 GM in DEXTROSE 5% IN WATER 50 ML IVPB ONE (10:09)
[2025-02-18] MEDS: BUPIVACAINE (PF) 0.5% 30 ML VIAL MISCELLANE ONE ×3 (10:24→11:01)
[2025-02-18] MEDS: BACITRACIN ZINC 500 UNIT/GM OINT 28.4 GM TUBE TOPICAL ONE (11:07)
[2025-02-18] MEDS: HYDROmorphone 0.5 MG/0.5 ML SYRINGE IVP PRN (11:43)
[2025-02-18 11:58] VITALS: RESP 16; TEMP 97
[2025-02-18] MEDS: HYDROcodone/APAP 10-325MG 1 EACH TAB PO ONE (13:34)
[2025-02-18] MEDS: hydrALAZINE HCL 20 MG/ML 1 ML VIAL IVP STA (14:17)
[2025-02-18 14:42] VITALS: PULSE 103
[2025-02-18 14:49] VITALS: BP 143/79
--- NOTE | 2025-02-18 18:57 | OP ---
OPERATIVE REPORT DATE OF SERVICE : PREOPERATIVE DIAGNOSIS: Chronic tonsillitis with tonsillar hypertrophy. POSTOPERATIVE DIAGNOSIS: Chronic tonsillitis with tonsillar hypertrophy. ANESTHESIA: General. PROCEDURE PERFORMED: Tonsillectomy. COMPLICATIONS: None. ESTIMATED BLOOD LOSS: Less than 50 mL. OPERATIVE PROCEDURE: The patient was placed on the Operating Table in the supine position, after uneventful induction and endotracheal intubation, satisfactory general anesthesia was obtained. Next, the #3 Niles-Alejandro mouth gag was introduced into the oropharynx, expanded and suspended from a Richardson Stand. Following this, both peritonsillar areas were injected with the tonsillar forceps and pulled medially. The sickle knife was used to make an incision 4 mm lateral to the anterior pillar, beginning at the superior pole and working down to the inferior pole with a similar incision being carried out parallel to the posterior pillar. The angle scissors and the serrated Rossana dissector were used to dissect the tonsil away from the tonsillar fossa. The tonsil itself was excised en toto using the tonsillar snare. Hemostasis was obtained using suction cautery. A sponge was placed in the empty tonsillar fossa. Attention was then directed to the left tonsil where the same procedure was carried out, with the left tonsil being grasped with the tonsillar forceps and pulled medially. The sickle knife was used to make an incision 4 mm lateral to the anterior pillar beginning at the superior pole and working down to the inferior pole with a similar incision being carried out parallel to the posterior pillar. Once again, the angle scissors and the serrated Rossana dissector were used to dissect the tonsil away from the tonsillar fossa and the tonsil itself was excised en toto using the tonsillar snare. Hemostasis was obtained using suction cautery. A sponge was placed in the empty tonsillar fossa. The mouth gag was relaxed for a period of approximately seven minutes and upon re-expanding and removing all sponges, no evidence of any active bleeding was noted. At this point, the procedure was terminated. There were no intraoperative complications. The patient tolerated the procedure well and was returned to the Recovery Room in satisfactory condition. MMODL / IJN: [id number] /
== END 2025-02-18 14:56 | disposition home or self-care (01) ==
LOC: OR 08:36
PROVIDERS: ATTEND Otolaryngology
DX: J03.01 Acute recurrent streptococcal tonsillitis (principal); J35.01 Chronic tonsillitis
CPT/HCPCS: 42826; J0360; J1100; J0690; J2405; J0131; J1171; J0665; 88304